=== PATIENT | female | born 1965 | race Caucasian/White ===

== ENCOUNTER 2024-09-06 18:31 | Emergency (ER) | payer MEDICAID, SELFPAY ==
[2024-09-06 18:32] VITALS: BMI 22.3
[2024-09-06 19:30] VITALS: BP 164/84; PULSE 100; RESP 18; TEMP 36.5; O2SAT 95
--- NOTE | 2024-09-06 19:33 | EKG_ITS ---
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
--- NOTE | 2024-09-06 19:33 | XR_ITS ---
Examination: PA lateral chest 2 views Technique: Upright PA lateral chest 2 views Exam date and time: September 06, 2024 1957 hrs. Comparison May 05, 2022 Indications: Onset chest pain today. Findings: Scarring versus pneumonia in the right middle lobe, clinical correlation advised Normal heart size No pulmonary edema Impression: Scarring versus pneumonia in the right middle lobe, clinical correlation advised
--- NOTE | 2024-09-06 19:34 | EDRME_ITS ---
Rapid Medical Screening Exam [facility] Arrival date/time: 09/06/24 18:31 59-year-old female past medical history of everyday smoker presents emergency department complaining of chest pain and allergic reaction to hair dye involving scalp and bilateral ears. Chief Complaint: Allergic Reaction Time Seen by Provider: 09/06/24 19:28 Vital signs: Vital Signs Temperature 97.7 F 09/06/24 19:30 Pulse Rate 100 09/06/24 19:30 Respiratory Rate 18 09/06/24 19:30 Blood Pressure 164/84 H 09/06/24 19:30 Pulse Oximetry (%) 95 09/06/24 19:30 Oxygen Delivery Method Room Air 09/06/24 19:30 Vital signs reviewed by provider: Yes
[2024-09-06] MEDS: FAMOTIDINE 20 MG TABLET 40 MG PO (19:41)
[2024-09-06] MEDS: DiphenhydrAMINE ELIX 25 MG/10 ML UDC 50 MG PO (19:41)
[2024-09-06] MEDS: DEXAMETHASONE SOD PHOS INJ 10 MG/ML VIAL IM (19:42)
[2024-09-06 19:54] LABS: Collection Type, Urine Clean Catch
[2024-09-06 20:02] LABS: Bacteria,Urine Rare; Bilirubin,Urine Negative (Negative); Blood,Urine Negative (Negative); Clarity,Urine Clear (Clear/Hazy); Color,Urine Lt-Yellow (Lt Yel-Yel); Culture Indicated,Urine Not Indicated; Glucose, Urine Negative (Negative); Ketones,Urine Negative (Negative); Leukocyte Esterase,Urine Positive (Negative); Nitrite,Urine Negative (Negative); Protein,Urine Trace (Neg - Trace); RBC,Urine 1 /hpf (0-3); Specific Gravity,Urine 1.027 (1.001-1.035); Squamous Epithelial Cell,Urine 3 /hpf (0-5); Urobilinogen,Urine Negative mg/dL (0.0-1.0); WBC,Urine 6 /hpf (0-5)
[2024-09-06 20:10] LABS: Amphetamine/Methamp Scrn,U Negative (Negative); Barbiturate Screen,Urine Negative (Negative); Benzodiazepines Screen,Urine Negative (Negative); Benzoylecgonine Screen, Ur Negative (Negative); Fentanyl Screen,Urine Negative (Negative); Opiate Screen,Urine Positive (Negative); THC Screen,Urine Positive (Negative)
[2024-09-06 20:21] LABS: Basophils # (Auto) 0.1 Thou/mm3 (0.0-0.2); Basophils % (Auto) 1 % (0-2.5); Eosinophils # (Auto) 0.6 Thou/mm3 (0.0-0.5); Eosinophils % (Auto) 10 % (0-10); Hematocrit 44.3 % (36.0-46.0); Hemoglobin 14.1 g/dL (12.0-16.0); Immature Granulocytes % (Auto) 0 % (0-0); Immature Granulocytes Auto 0.01 Thou/mm3 (0.00-0.00); Lymphocytes # (Auto) 2.8 Thou/mm3 (1.0-4.8); Lymphocytes % (Auto) 50 % (10-50); Mean Corpuscular HGB Conc 31.8 g/dl (31.0-37.0); Mean Corpuscular Hemoglobin 30.2 pg (25.0-35.0); Mean Corpuscular Volume 95 fL (80-100); Monocytes # (Auto) 0.5 Thou/mm3 (0.0-0.8); Monocytes % (Auto) 9 % (0-12); Neutrophils # (Auto) 1.7 Thou/mm3 (1.8-7.7); Neutrophils % (Auto) 30 % (37-80); Nucleated Red Blood Cell % 0 /100 WBC (0); Platelet Count 289 Thou/mm3 (140-440); RDW Standard Deviation 45.1 fL (36.4-46.3); Red Blood Count 4.67 Miln/mm3 (4.00-5.20); White Blood Count 5.6 Thou/mm3 (3.6-11.0)
[2024-09-06 20:37] LABS: Partial Thromboplastin Time 26.5 Seconds (22.0-36.0); Prothrombin Time 10.9 Seconds (9.0-12.2)
[2024-09-06 20:42] LABS: B-Type Natriuretic Peptide < 20 pg/mL (0-100)
[2024-09-06 20:43] LABS: Alanine Aminotransferase 23 U/L (10-49); Albumin, Serum 4.8 gm/dL (3.5-5.0); Albumin/Globulin Ratio 1.8 (1.2-2.2); Alkaline Phosphatase 73 U/L (46-116); Anion Gap 3 (7-16); Aspartate Amino Transferase 26 U/L (0-34); BUN/Creatinine Ratio 14 Ratio (12-20); Bilirubin,Total 0.2 mg/dL (0.3-1.2); Blood Urea Nitrogen 11 mg/dL (9-23); Calcium 9.9 mg/dL (8.3-10.6); Calcium (Corrected) 9.9 mg/dL (8.5-10.1); Carbon Dioxide 32.2 mMol/L (20.0-31.0); Chloride 104 mMol/L (98-107); Creatinine (Component) 0.8 mg/dL (0.6-1.3); Globulin 2.6 gm/dL (2.3-3.5); Glucose 83 mg/dL (74-106); Magnesium 2.1 mg/dL (1.6-2.6); Osmolality,Calculated 275 (275-295); Potassium 3.9 mMol/L (3.4-5.1); Sodium 139 mMol/L (136-145); Total Protein 7.4 gm/dL (5.7-8.2); Troponin I < 0.020 ng/mL (0.0-0.045); eGFR > 60 See Note
[2024-09-06 20:52] VITALS: BP 151/76; PULSE 93; RESP 20; TEMP 37; O2SAT 95
--- NOTE | 2024-09-06 20:59 | PD.EDADULT ---
ED General RME/HPI General Chief complaint: Allergic Reaction Stated complaint: POSS ALLERGIC REACTION TO HAIR DYE, BLISTERS ON EA Time Seen by Provider: 09/06/24 19:28 Arrival date/time: 09/06/24 18:31 CC: Itching scalp rash on scalp itching and oozing from the tops of her ears, intermittent chest pain HPI itching scalp and ears is ongoing for 3 days, chest pain for several weeks lasting 1 to 2 hours in different areas of the chest last episode was left anterior lasted 1 hour dull in nature 1-3 on a 10 scale that spontaneously resolved. Patient states all the scalp and ear complaints are related to putting dye in her hair the patient knows she cannot take ammonia or certain kind of diet secondary to a known allergic reaction and this diet a lot was supposed to be without those in spite of the fact the patient want of having itchy scalp with a rash underneath the hair and pussy tops of the ears 4 days after applying the hair dye. Patient states she has been smoking 2 packs a day for the last 40 years until last year when she cut down to 1 pack and she is continue to work on cutting down less than that. RME / HPI RME / HPI narrative: 09/06/24 18:31 59-year-old female past medical history of everyday smoker presents emergency department complaining of chest pain and allergic reaction to hair dye involving scalp and bilateral ears. Related Data Home Medications ?Medication ?Instructions ?Recorded ?Confirmed baclofen 5 mg tablet 5 mg PO BID 01/02/21 01/02/21 hydrocodone 10 mg-acetaminophen 1 tab PO Q4H PRN Pain 01/02/21 01/02/21 325 mg tablet pregabalin 75 mg capsule (Lyrica) 75 mg PO BID 01/02/21 01/02/21 Previous Rx's ?Medication ?Instructions ?Recorded ibuprofen 600 mg tablet 600 mg PO Q8H PRN pain #20 tabs 06/21/21 hydrocodone 5 mg-acetaminophen 325 1 tab PO BID PRN pain #10 tabs 06/22/21 mg tablet fluticasone propionate 50 2 spray intranasal QDAY #16 grams 10/19/21 mcg/actuation nasal spray,suspension (Flonase Allergy Relief) albuterol sulfate 90 mcg/actuation 2 puff inhalation QID #8.5 grams 05/06/22 aerosol inhaler budesonide-formoterol HFA 80 2 puff inhalation BID #10.2 grams 05/06/22 mcg-4.5 mcg/actuation aerosol inhaler (Symbicort) cetirizine 10 mg tablet (Zyrtec) 10 mg PO QDAY PRN allergy symptoms 03/31/24 #20 tabs diphenhydramine HCl 25 mg capsule 25 mg PO TID PRN allergy symptoms 03/31/24 (Allergy (diphenhydramine)) #20 caps hydrocortisone 2.5 % topical cream 1 applic topical BID PRN itching 04/02/24 #30 grams prednisone 20 mg tablet See Taper PO BID 3 days #6 tabs 09/06/24 Allergies Allergy/AdvReac Type Severity Reaction Status Date / Time paroxetine Allergy Mild Rash Verified 09/06/24 18:34 sertraline Allergy Mild Rash Verified 09/06/24 18:34 Review of Systems Review of Systems Narrative Review of Systems: GEN: No fever, no chills, no weight loss EYES: No discharge, no visual changes, no pain HEENT: No ear pain, no congestion, no sore throat PULM: No shortness of breath, no cough, no congestion CV: No chest pain, no dyspnea on exertion, no palpitations GI: No nausea, no vomiting, no diarrhea, no pain, no constipation : No frequency, no urgency, no dysuria MUSC/SKEL: No joint pain, no back pain SKIN: + rash PSYCH: No hallucinations, no depression HEME/LYMPH: No easy bleeding or bruising tendencies NEURO: No weakness, no headache Past Medical History Past Medical History NEUROLOGIC: Negative Neurological Disorders CARDIAC: Negative Cardiac Disorders or Congestive Heart Failure RESPIRATORY: Negative Chronic Obstructive Pulmonary Disease (COPD) or Asthma GENITOURINARY: Negative Renal Disease ENDOCRINE: Negative Diabetes Mellitus Type 1 or Diabetes Mellitus Type 2 HEMATOLOGIC: Negative Sickle Cell Disease PSYCHO/SOCIAL: Positive Bipolar Disorder Social History SMOKING STATUS: Current every day smoker ED Exam Narrative Physical exam: [General: In mild discomfort not in any acute distress Head normocephalic HEENT: Within acceptable limits Neck is supple nontender Chest equal chest rise nontender to palpation Respiratory: Clear to auscultation no wheezes crackles or rubs CV: Rate rhythm is regular no murmurs rubs or clicks Abdomen is soft nontender no masses positive bowel sounds all 4 quadrants Back: No CVA tenderness no spinous process tenderness from cervical spine thoracic and lumbar spine Skin: Scalp erythema, no open lesions indurations or ulcerations, upper pinna of the ear is edematous erythematous with a few sites of oozing a small amount of serous secondary to fluid. No active bleeding. Otherwise skin is intact no petechiae rash induration ulceration or crepitus Extremities: Moving all extremity against resistance cap refill less than 2 seconds neurosensory intact Neuro: Awake alert oriented x3 Glascow coma 15 no focal deficits] Course Quality Measures none Orders Category Date Time Status EKG (ED ONLY) *Do not use* NOW Care 09/06/24 19:33 Completed EKG (ED Only) Stat Exams 09/06/24 19:33 Draft XR chest 2V Stat Exams 09/06/24 19:33 Taken B-Type Natriuretic Peptide Stat Lab 09/06/24 19:48 Completed CBC Stat Lab 09/06/24 19:48 Completed Comprehensive Metabolic Panel Stat Lab 09/06/24 19:48 Completed Drug Screen,Urine Stat Lab 09/06/24 19:46 Completed Magnesium Stat Lab 09/06/24 19:48 Completed Partial Thromboplastin Time Stat Lab 09/06/24 19:48 Completed Prothrombin Time with INR Stat Lab 09/06/24 19:48 Completed Troponin I Stat Lab 09/06/24 19:48 Completed Urinalysis, C/S if Indicated Stat Lab 09/06/24 19:46 Completed Dexamethasone Inj [Decadron Inj] Med 09/06/24 19:33 Discontinued 10 mg IM X1 ONE DiphenhydrAMINE [Benadryl] Med 09/06/24 19:33 Discontinued 50 mg PO X1 ONE Famotidine [Pepcid] Med 09/06/24 19:33 Discontinued 40 mg PO X1 ONE Vital Signs Vital signs: Vital Signs Temperature 97.7 F 09/06/24 19:30 Pulse Rate 100 09/06/24 19:30 Respiratory Rate 18 09/06/24 19:30 Blood Pressure 164/84 H 09/06/24 19:30 Pulse Oximetry (%) 95 09/06/24 19:30 Oxygen Delivery Method Room Air 09/06/24 19:30 [facility] Patient data External records reviewed:: [facility] previous records Clinical information provided by:: patient Social determinants that could affect healthcare access:: none Patient has the following chronic illnesses:: Chronic pain syndrome How is presenting disease/condition affected by chronic disease/condition?: uneffected by Evaluation data The following diagnostics were reviewed and interpreted by me:: lab results and radiology exam(s) Lab and/or radiology exams considered but not ordered:: CBC shows no acute leukocytosis anemia thrombocytopenia INR is within acceptable limits CMP shows no acute electrolyte imbalances renal impairment transaminitis or T. bili elevation. Troponin is negative EKG performed at 1943 shows a ventricular rate of 94 HI interval 164 QRS of 109 QTc of 386. Incomplete right bundle branch block. Interpretation Summary: Skin irritation to the upper ears and the scalp secondary to exposure to hair dye, chest pain is most likely chest spasms by the description, there are no acute findings such as ACS or MRI patient will be discharged home on a small amount of steroids and told to avoid all hair dyes. Medications Medications considered but not ordered:: None Medication administrations:: Medication Administration History Discontinued Medications Dexamethasone Sodium Phosphate (Dexamethasone Sod Phos Inj 10 Mg/Ml Vial) 10 mg IM X1 ONE Stop: 09/06/24 19:34 Last Admin: 09/06/24 19:42 Dose: 10 mg Documented By: OA Diphenhydramine HCl (Diphenhydramine Elix 25 Mg/10 Ml Udc) 50 mg PO X1 ONE Stop: 09/06/24 19:34 Last Admin: 09/06/24 19:41 Dose: 50 mg Documented By: OA Famotidine (Famotidine 20 Mg Tablet) 40 mg PO X1 ONE Stop: 09/06/24 19:34 Last Admin: 09/06/24 19:41 Dose: 40 mg Documented By: OA None Consultations Consultation(s) initiated? (list below): No Diagnosis Differential Diagnosis ED Complaint MDM: ACS OR pneumonia allergic reaction urticaria Most likely diagnosis given after review of the tests above:: Skin irritation and chest pain Admission Indicated Admission indicated?: not indicated Explain why admission is indicated or not indicated:: Stable for outpatient follow-up Admission Request Was there a request for admission?: No Disposition Plan Disposition Plan: Discharge Discharge Attestation Discharge Attestation: The patient and all family members were given an opportunity to ask questions and understood the discharge instructions. Discharge instructions specifically effects, indications for sooner follow up or return to the emergency department, and the expected course of current diagnosis. Patient condition: Stable Medical Decision Making Differential Diagnosis Differential Diagnosis: ACS OR pneumonia allergic reaction urticaria Lab Data 11/19/24 19:48 09/06/24 19:48 Labs: Lab Results 09/06/24 09/06/24 Range/Units 19:46 19:48 WBC 5.6 (3.6-11.0) Thou/mm3 RBC 4.67 (4.00-5.20) Miln/mm3 Hgb 14.1 (12.0-16.0) g/dL Hct 44.3 (36.0-46.0) % MCV 95 (80-100) fL MCH 30.2 (25.0-35.0) pg MCHC 31.8 (31.0-37.0) g/dl RDW Std Deviation 45.1 (36.4-46.3) fL Plt Count 289 (140-440) Thou/mm3 Neut % (Auto) 30 L (37-80) % Lymph % (Auto) 50 (10-50) % Garrett % (Auto) 9 (0-12) % Eos % (Auto) 10 (0-10) % Baso % (Auto) 1 (0-2.5) % Neut # (Auto) 1.7 L (1.8-7.7) Thou/mm3 Lymph # (Auto) 2.8 (1.0-4.8) Thou/mm3 Garrett # (Auto) 0.5 (0.0-0.8) Thou/mm3 Eos # (Auto) 0.6 H (0.0-0.5) Thou/mm3 Baso # (Auto) 0.1 (0.0-0.2) Thou/mm3 Immature Gran # (Auto) 0.01 H (0.00-0.00) Thou/mm3 Absolute Nucleated RBC 0.00 (0.00-0.00) Thou/mm3 Immature Gran % 0 (0-0) % Nucleated RBC % 0 (0) /100 WBC PT 10.9 (9.0-12.2) Seconds INR 1.0 (0.9-1.3) APTT 26.5 (22.0-36.0) Seconds Sodium 139 (136-145) mMol/L Potassium 3.9 (3.4-5.1) mMol/L Chloride 104 (98-107) mMol/L Carbon Dioxide 32.2 H (20.0-31.0) mMol/L Anion Gap 3 L (7-16) BUN 11 (9-23) mg/dL Creatinine 0.8 (0.6-1.3) mg/dL Estim Creat Clear Calc 67.0 (>60) mL/min eGFR > 60 (60 - ) See Note BUN/Creatinine Ratio 14 (12-20) Ratio Glucose 83 (74-106) mg/dL Calculated Osmolality 275 (275-295) Calcium 9.9 (8.3-10.6) mg/dL Corrected Calcium 9.9 (8.5-10.1) mg/dL Magnesium 2.1 (1.6-2.6) mg/dL Total Bilirubin 0.2 L (0.3-1.2) mg/dL AST 26 (0-34) U/L ALT 23 (10-49) U/L Alkaline Phosphatase 73 (46-116) U/L Troponin I < 0.020 (0.0-0.045) ng/mL B-Natriuretic Peptide < 20 (0-100) pg/mL Total Protein 7.4 (5.7-8.2) gm/dL Albumin 4.8 (3.5-5.0) gm/dL Globulin 2.6 (2.3-3.5) gm/dL Albumin/Globulin Ratio 1.8 (1.2-2.2) Ur Collection Type Clean Catch Urine Color Lt-Yellow (Lt Yel-Yel) Urine Clarity Clear (Clear/Hazy) Urine pH 6.0 (5.0-7.0) Ur Specific [place] 1.027 (1.001-1.035) Urine Protein Trace (Neg - Trace) Urine Glucose (UA) Negative (Negative) Urine Ketones Negative (Negative) Urine Blood Negative (Negative) Urine Nitrite Negative (Negative) Urine Bilirubin Negative (Negative) Urine Urobilinogen (Auto) Negative (0.0-1.0) mg/dL Ur Leukocyte Esterase Positive (Negative) Urine RBC 1 (0-3) /hpf Urine WBC 6 H (0-5) /hpf Ur Squamous Epith Cells 3 (0-5) /hpf Urine Bacteria Rare (None) Ur Culture Indicated? Not Indicated Urine Opiates Screen Positive A (Negative) Urine Fentanyl Screen Negative (Negative) Ur Barbiturates Screen Negative (Negative) U Amphetamin/Meth Scrn Negative (Negative) U Benzodiazepines Scrn Negative (Negative) U Cocaine Metab Screen Negative (Negative) U Marijuana (THC) Screen Positive A (Negative) Discharge Plan Plan Patient Disposition: HOME (Self Care) Patient condition on transfer: Stable Prescriptions/Referrals Prescriptions/Med Rec: New prednisone 20 mg tablet See Taper PO BID 3 Days Qty: 6 0RF Taper: Prednisone Taper 20 mg DAILY for 2 Days and 0 Hour 10 mg DAILY for 2 Days and 0 Hour 5 mg DAILY for 7 Days and 0 Hour No Action ibuprofen 600 mg tablet 600 mg PO Q8H PRN (Reason: pain) Qty: 20 0RF hydrocodone-acetaminophen 5-325 mg tablet 1 tab PO BID MDD 10 PRN (Reason: pain) Qty: 10 0RF hydrocodone-acetaminophen [Shorter] 10-325 mg Tablet 1 tab PO Q4H PRN (Reason: Pain) pregabalin [Lyrica] 75 mg Capsule 75 mg PO BID baclofen 5 mg Tablet 5 mg PO BID fluticasone propionate [Flonase Allergy Relief] 50 mcg/actuation spray,suspension 2 spray intranasal QDAY Qty: 16 0RF Rx Instructions: administer into each nostril albuterol sulfate 90 mcg/actuation HFA aerosol inhaler 2 puff inhalation QID Qty: 8.5 0RF budesonide-formoterol [Symbicort] 80-4.5 mcg/actuation HFA aerosol inhaler 2 puff inhalation BID Qty: 10.2 0RF diphenhydramine HCl [Allergy (diphenhydramine)] 25 mg capsule 25 mg PO TID PRN (Reason: allergy symptoms) Qty: 20 0RF cetirizine [Zyrtec] 10 mg tablet 10 mg PO QDAY PRN (Reason: allergy symptoms) Qty: 20 0RF hydrocortisone 2.5 % cream 1 applic topical BID PRN (Reason: itching) Qty: 30 0RF Referrals: Vaibhav Coe[facility] [Primary Care Provider] - In 1 week Problem List Clinical Impression: Skin irritation Patient/Caregiver Discharge Instructions Additional Instructions: Consider outpatient referral to cardiology for outpatient workup. Take the medications as prescribed for the reaction to the hair dye if there is a worsening of symptoms in spite of the medications return the emergency room immediately for further evaluation. If you have persistent or unrelenting chest pain also return the emergency room for reevaluation. Please work closely with your primary care provider during smoking cessation. As you stated many of your family members have cardiac issues and you may want to have this closely monitored while you stop smoking. Print Language: Czech Stand Alone Forms: [employer]ell Award Info., Patient Portal Info Letter, Work/School Release PA/OPHTHALMIC PHOTOGRAPHER Supervising Physician PA/OPHTHALMIC PHOTOGRAPHER Supervising Physician: Elieser Reid ENP
== END 2024-09-06 21:38 | disposition home or self-care (01) ==
PROVIDERS: Emergency Provider Emergency Medicine; PCP Family Medicine
DX: T65.6X1A Toxic effect of paints and dyes, not elsewhere classified, accidental (unintentional), initial encounter (principal); L23.4 Allergic contact dermatitis due to dyes; I45.10 Unspecified right bundle-branch block
CPT/HCPCS: 36415; 71046; 80053; 80307; 81001; 83735; 83880; 84484; 85025; 85610; 85730; 93005; 96372; 99283; J1100; A9270

== ENCOUNTER 2024-09-13 20:59 | Emergency (ER) | payer MEDICAID, SELFPAY ==
[2024-09-13 21:00] VITALS: BMI 23.1
[2024-09-13 21:24] VITALS: BP 128/84; PULSE 98; RESP 18; TEMP 36.6; O2SAT 95
--- NOTE | 2024-09-13 21:52 | PD.EDALLER ---
ED Allergic Reaction RME/HPI General Chief complaint: Skin/Abscess/Foreign Body Stated complaint: BREAKING OUT IN RASH FROM HAIR DYE Time Seen by Provider: 09/13/24 21:33 Arrival date/time: 09/13/24 20:59 59F with history of psych presents to ED with 1 week of generalized itchy rash from a new hair dye. Patient was here 1 week ago during initial presentation and steroids/antihistamines helped, but then rash came back after meds were done. Limitations: no limitations Related Data Home Medications ?Medication ?Instructions ?Recorded ?Confirmed baclofen 5 mg tablet 5 mg PO BID 01/02/21 01/02/21 hydrocodone 10 mg-acetaminophen 1 tab PO Q4H PRN Pain 01/02/21 01/02/21 325 mg tablet pregabalin 75 mg capsule (Lyrica) 75 mg PO BID 01/02/21 01/02/21 Previous Rx's ?Medication ?Instructions ?Recorded ibuprofen 600 mg tablet 600 mg PO Q8H PRN pain #20 tabs 06/21/21 hydrocodone 5 mg-acetaminophen 325 1 tab PO BID PRN pain #10 tabs 06/22/21 mg tablet fluticasone propionate 50 2 spray intranasal QDAY #16 grams 10/19/21 mcg/actuation nasal spray,suspension (Flonase Allergy Relief) albuterol sulfate 90 mcg/actuation 2 puff inhalation QID #8.5 grams 05/06/22 aerosol inhaler budesonide-formoterol HFA 80 2 puff inhalation BID #10.2 grams 05/06/22 mcg-4.5 mcg/actuation aerosol inhaler (Symbicort) cetirizine 10 mg tablet (Zyrtec) 10 mg PO QDAY PRN allergy symptoms 03/31/24 #20 tabs diphenhydramine HCl 25 mg capsule 25 mg PO TID PRN allergy symptoms 03/31/24 (Allergy (diphenhydramine)) #20 caps hydrocortisone 2.5 % topical cream 1 applic topical BID PRN itching 04/02/24 #30 grams hydrocortisone 2.5 % topical cream 1 applic topical BID PRN itching 09/14/24 #30 grams prednisone 20 mg tablet 20 mg PO BID 7 days #14 tabs 09/14/24 Allergies Allergy/AdvReac Type Severity Reaction Status Date / Time paroxetine Allergy Mild Rash Verified 09/06/24 18:34 sertraline Allergy Mild Rash Verified 09/06/24 18:34 Review of Systems Review of Systems Systems Reviewed: All systems reviewed, normal except as documented Constitutional Constitutional: Reports system reviewed and no additional complaints, except as documented, Denies fever(s) and Denies headache(s) ENT Ears, Nose, Mouth, and Throat: Denies disequilibrium and Denies headache(s) Cardiovascular Cardiovascular: Reports system reviewed and no additional complaints, except as documented, Denies chest pain and Denies dyspnea Respiratory Respiratory: Reports system reviewed and no additional complaints, except as documented, Denies cough and Denies dyspnea Gastrointestinal Gastrointestinal: Reports system reviewed and no additional complaints, except as documented, Denies abdominal pain, Denies nausea and Denies vomiting Integumentary/Breasts Skin/Breast: Reports as per HPI, Reports pruritus and Reports rash Neurologic Neurologic: Reports system reviewed and no additional complaints, except as documented, Denies confusion, Denies disequilibrium and Denies headache(s) Psychiatric Psychiatric: Denies confusion Past Medical History Past Medical History NEUROLOGIC: Negative Neurological Disorders CARDIAC: Negative Cardiac Disorders or Congestive Heart Failure RESPIRATORY: Negative Chronic Obstructive Pulmonary Disease (COPD) or Asthma GENITOURINARY: Negative Renal Disease ENDOCRINE: Negative Diabetes Mellitus Type 1 or Diabetes Mellitus Type 2 HEMATOLOGIC: Negative Sickle Cell Disease PSYCHO/SOCIAL: Positive Bipolar Disorder Social History SMOKING STATUS: Current every day smoker ED Exam General Limitations: Present no limitations General appearance: Present alert and in no apparent distress Head Head exam: Present atraumatic Eye Eye exam: Present normal appearance, PERRL and EOMI ENT ENT exam: Present normal exam, normal oropharynx and mucous membranes moist Neck Neck exam: Present normal inspection, full ROM and trachea midline Chest Chest inspection: Present normal inspection and symmetric chest wall rise Respiratory Respiratory exam: Present normal lung sounds bilaterally Cardiovascular Cardiovascular exam: Present regular rate, normal rhythm and normal heart sounds Abdominal Exam Abdominal exam: Present soft and normal bowel sounds Extremities Exam Extremities exam: Present normal inspection and full ROM Back Exam Back exam: Present normal inspection and full ROM Neurological Exam Neurological exam: Present alert, oriented X3 and CN II-XII intact Psychiatric Psychiatric exam: Present normal affect and normal mood Skin Skin exam: Present warm, dry, intact, normal color and rash Course Quality Measures none Orders Category Date Time Status Dexamethasone Inj [Decadron Inj] Med 09/13/24 21:34 Discontinued 10 mg PO X1 ONE DiphenhydrAMINE [Benadryl] Med 09/14/24 00:18 Discontinued 25 mg PO X1 ONE Famotidine [Pepcid] Med 09/13/24 21:34 Discontinued 40 mg PO X1 ONE Vital Signs Vital signs: Vital Signs Temperature 98 F 09/13/24 21:24 Pulse Rate 98 09/13/24 21:24 Respiratory Rate 18 09/13/24 21:24 Blood Pressure 128/84 09/13/24 21:24 Pulse Oximetry (%) 95 09/13/24 21:24 Oxygen Delivery Method Room Air 09/13/24 21:24 O2 at 95% on RA and WNLs Allergic Reaction MDM Narrative MDM Narrative:: 59F with history of psych presents to ED with 1 week of generalized itchy rash from a new hair dye. Patient was here 1 week ago during initial presentation and steroids/antihistamines helped, but then rash came back after meds were done. Physical exam reveals generalized somewhat urticarial rash. Clear ENT and lungs. Paitent is afebrile, calm, and alert. Steroids mildly improved symptoms. Will also given steroid cream as RX as this is likely contact dermatitis. Patient data External records reviewed:: [facility] previous records Clinical information provided by:: patient Social determinants that could affect healthcare access:: mental health Patient has the following chronic illnesses:: psych How is presenting disease/condition affected by chronic disease/condition?: uneffected by Evaluation data The following diagnostics were reviewed and interpreted by me:: other (specify) (none) Lab and/or radiology exams considered but not ordered:: not ordered Interpretation Summary: n/a Medications / Prescriptions Medications or Prescriptions considered but not ordered:: ordered Medication administrations:: Medication Administration History Discontinued Medications Dexamethasone Sodium Phosphate (Dexamethasone Sod Phos Inj 10 Mg/Ml Vial) 10 mg PO X1 ONE Stop: 09/13/24 21:35 Last Admin: 09/13/24 21:53 Dose: 10 mg Documented By: HEATHER Diphenhydramine HCl (Diphenhydramine 25 Mg Capsule) 25 mg PO X1 ONE Stop: 09/14/24 00:19 Famotidine (Famotidine 20 Mg Tablet) 40 mg PO X1 ONE Stop: 09/13/24 21:35 Last Admin: 09/13/24 21:53 Dose: 40 mg Documented By: HEATHER above Consultations Consultation(s) initiated? (list below): No Diagnosis Differential Diagnosis allergic reaction: anaphylaxis, allergic reaction, angioedema, contact dermatitis, adverse reaction to drug, viral enanthem and urticaria Most likely diagnosis given after review of the tests above:: contact dermatitis Admission Indicated Admission indicated?: not indicated Admission Request Was there a request for admission?: No Disposition Plan Disposition Plan: Discharge Discharge Attestation Discharge Attestation: The patient and all family members were given an opportunity to ask questions and understood the discharge instructions. Discharge instructions specifically effects, indications for sooner follow up or return to the emergency department, and the expected course of current diagnosis. Patient condition: Stable Discharge Plan Plan Patient Disposition: HOME (Self Care) Disposition Comment: Stable Prescriptions/Referrals Prescriptions/Med Rec: New prednisone 20 mg tablet 20 mg PO BID 7 Days Qty: 14 0RF hydrocortisone 2.5 % cream 1 applic topical BID PRN (Reason: itching) Qty: 30 0RF No Action ibuprofen 600 mg tablet 600 mg PO Q8H PRN (Reason: pain) Qty: 20 0RF hydrocodone-acetaminophen 5-325 mg tablet 1 tab PO BID MDD 10 PRN (Reason: pain) Qty: 10 0RF hydrocodone-acetaminophen [[place]] 10-325 mg Tablet 1 tab PO Q4H PRN (Reason: Pain) pregabalin [Lyrica] 75 mg Capsule 75 mg PO BID baclofen 5 mg Tablet 5 mg PO BID fluticasone propionate [Flonase Allergy Relief] 50 mcg/actuation spray,suspension 2 spray intranasal QDAY Qty: 16 0RF Rx Instructions: administer into each nostril albuterol sulfate 90 mcg/actuation HFA aerosol inhaler 2 puff inhalation QID Qty: 8.5 0RF budesonide-formoterol [Symbicort] 80-4.5 mcg/actuation HFA aerosol inhaler 2 puff inhalation BID Qty: 10.2 0RF diphenhydramine HCl [Allergy (diphenhydramine)] 25 mg capsule 25 mg PO TID PRN (Reason: allergy symptoms) Qty: 20 0RF cetirizine [Zyrtec] 10 mg tablet 10 mg PO QDAY PRN (Reason: allergy symptoms) Qty: 20 0RF hydrocortisone 2.5 % cream 1 applic topical BID PRN (Reason: itching) Qty: 30 0RF Referrals: Joy Quinones FNP [Primary Care Provider] - In 1 week Problem List Clinical Impression: Contact dermatitis Patient/Caregiver Discharge Instructions Education Materials: ED Contact Dermatitis Additional Instructions: Please follow-up with PCP within 24-48 hours and return immediately if symptoms worsen. Take OTC antihistamine as needed until symptoms resolve. Finish entire steroid course. Avoid scratching. Print Language: Korean Stand Alone Forms: Patient Portal Info Letter KONSTANTIN/CARMELINA Supervising Physician MIKKI Supervising Physician: Dr. Gutierres
[2024-09-13] MEDS: DEXAMETHASONE SOD PHOS INJ 10 MG/ML VIAL PO (21:53)
[2024-09-13] MEDS: FAMOTIDINE 20 MG TABLET 40 MG PO (21:53)
[2024-09-13 23:52] VITALS: BP 116/83; PULSE 96; RESP 18; TEMP 36.6; O2SAT 95
[2024-09-14] MEDS: DiphenhydrAMINE 25 MG CAPSULE PO (00:25)
== END 2024-09-14 00:53 | disposition home or self-care (01) ==
PROVIDERS: Emergency Provider Emergency Medicine; PCP Nurse Practitioner
DX: L25.9 Unspecified contact dermatitis, unspecified cause (principal)
CPT/HCPCS: 99282; J1100; A9270

== ENCOUNTER → 2024-11-22 | Outpatient (CLI) | payer MEDICAID, SELFPAY ==
--- NOTE | 2024-11-22 | XR_ITS ---
Examination: Humerus 2 views right Technique: Humerus, AP lateral 2 views Date and time of exam: November 22, 2024 1505 hours INDICATIONS: Patient fell today with injury to the arm, right arm pain FINDINGS: No shoulder fracture or dislocation Shaft of the humerus intact IMPRESSION: No acute fracture Mild calcific tendinitis
--- NOTE | 2024-11-22 16:56 | XR_ITS ---
Examination: Shoulder,right, 3 views Technique: Shoulder AP internal rotation, AP external rotation, Y view shoulder, 3 views Exam date and time :November 22, 2024 1658 hours INDICATIONS: Patient fell 2 weeks ago with injury to the shoulder, shoulder pain. FINDINGS: No shoulder fracture or dislocation Moderate osteoarthritis glenohumeral joint Mild calcific tendinitis IMPRESSION: No shoulder fracture or dislocation
== END | disposition home or self-care (01) ==
PROVIDERS: PCP Family Medicine; Referring Provider Family Medicine; Visit Provider Family Medicine
DX: S49.91XA Unspecified injury of right shoulder and upper arm, initial encounter (principal); W19.XXXA Unspecified fall, initial encounter; M65.28 Calcific tendinitis, other site
CPT/HCPCS: 73030; 73060

== ENCOUNTER 2025-01-04 22:02 | Emergency (ER) | payer MEDICAID, SELFPAY ==
[2025-01-04 22:03] VITALS: BMI 23.1
[2025-01-04 23:02] VITALS: BP 160/79; PULSE 97; RESP 18; TEMP 36.6; O2SAT 95
[2025-01-04] MEDS: FAMOTIDINE 20 MG TABLET PO (23:20)
[2025-01-04] MEDS: DEXAMETHASONE SOD PHOS INJ 10 MG/ML VIAL PO (23:20)
--- NOTE | 2025-01-05 00:33 | PD.EDRME ---
Rapid Medical Screening Exam [facility] Arrival date/time: 01/04/25 22:02 59F with history of drug use presents to ED with 1 day of generalized itchy rash after using a new cream. Patient denies new meds, foods, SOB, and throat swelling. Patient took some Benadryl w/o relief. Chief Complaint: Skin/Abscess/Foreign Body Time Seen by Provider: 01/04/25 23:08 Vital signs: Vital Signs Temperature 97.9 F 01/04/25 23:02 Pulse Rate 97 01/04/25 23:02 Respiratory Rate 18 01/04/25 23:02 Blood Pressure 160/79 H 01/04/25 23:02 Pulse Oximetry (%) 95 01/04/25 23:02 Oxygen Delivery Method Room Air 01/04/25 23:02
--- NOTE | 2025-01-05 00:45 | PC.NURSE ---
CALLED PT FOR PROVIDER REASSESSMENT AND NO ANSWER.
--- NOTE | 2025-01-05 01:00 | PC.NURSE ---
CALLED PT FOR PROVIDER REASSESSMENT AND NO ANSWER.
--- NOTE | 2025-01-05 01:17 | PC.NURSE ---
CALLED PT FOR PROVIDER REASSESSMENT AND NO ANSWER.
== END 2025-01-05 01:23 | disposition left against medical advice (07) ==
LOC: SERX 23:39
PROVIDERS: Emergency Provider Emergency Medicine; PCP Family Medicine
DX: R21 Rash and other nonspecific skin eruption (principal); Z53.29 Procedure and treatment not carried out because of patient's decision for other reasons
CPT/HCPCS: 99281; J1100; A9270

== ENCOUNTER 2025-01-27 15:38 | Emergency (ER) | payer MEDICAID, SELFPAY ==
[2025-01-27 15:49] VITALS: BP 133/76; PULSE 100; RESP 19; TEMP 36.7; O2SAT 96; BMI 23.1
--- NOTE | 2025-01-27 15:57 | XR_ITS ---
Examination: CT right hip, without contrast. 2-D sagittal reconstructions. 2-D coronal reconstructions. 3-D reconstructions. Date and time of exam:January 27, 2025 1615 hrs. Indications: Patient fell today with injury to the right hip, right hip pain CTDI: vol (mGy):5.07 DLP: (mGycm):166 Technique: Multiple 1.25 mm axial sections of the pelvis right hip without intravenous contrast have been obtained. 2-D sagittal and coronal reconstructions have been obtained. 3-D reconstructions have been obtained. Low dose protocols were performed. One or more of the following dose reduction techniques were used; automated exposure control, adjustment of the mA and/or KV according to patient size, use of iterative reconstruction technique. Findings: Sacral segments and iliac bones acetabular regions anterior rami intact Advanced right hip osteoarthritis No right or left hip fracture or dislocation Impression: Advanced right hip osteoarthritis No acute hip or pelvic fracture
--- NOTE | 2025-01-27 16:16 | PD.EDRME ---
Rapid Medical Screening Exam [facility] Arrival date/time: 01/27/25 15:38 59-year-old female presents to the Emergency Department today for complaint of right hip pain Chief Complaint: Fall Time Seen by Provider: 01/27/25 15:58 Vital signs: Vital Signs Temperature 98.0 F 01/27/25 15:49 Pulse Rate 100 01/27/25 15:49 Respiratory Rate 19 01/27/25 15:49 Blood Pressure 133/76 H 01/27/25 15:49 Pulse Oximetry (%) 96 01/27/25 15:49 Oxygen Delivery Method Room Air 01/27/25 15:49
[2025-01-27] MEDS: KETOROLAC INJ 30 MG/ML VIAL IM (16:43)
--- NOTE | 2025-01-27 17:09 | PD.EDFALL ---
ED Fall Injury RME/HPI General Chief Complaint: Fall Stated Complaint: Right leg pain after fall Time Seen by Provider: 01/27/25 15:58 Arrival date/time: 01/27/25 15:38 59-year-old female presents to the Emergency Department today for complaint of right hip pain and right inguinal pain after fall Limitations: no limitations RME / HPI RME / HPI Narrative: 01/27/25 15:38 59-year-old female presents to the Emergency Department today for complaint of right hip pain Related Data Home Medications ?Medication ?Instructions ?Recorded ?Confirmed baclofen 5 mg tablet 5 mg PO BID 01/02/21 01/02/21 hydrocodone 10 mg-acetaminophen 1 tab PO Q4H PRN Pain 01/02/21 01/02/21 325 mg tablet pregabalin 75 mg capsule (Lyrica) 75 mg PO BID 01/02/21 01/02/21 Previous Rx's ?Medication ?Instructions ?Recorded ibuprofen 600 mg tablet 600 mg PO Q8H PRN pain #20 tabs 06/21/21 hydrocodone 5 mg-acetaminophen 325 1 tab PO BID PRN pain #10 tabs 06/22/21 mg tablet fluticasone propionate 50 2 spray intranasal QDAY #16 grams 10/19/21 mcg/actuation nasal spray,suspension (Flonase Allergy Relief) albuterol sulfate 90 mcg/actuation 2 puff inhalation QID #8.5 grams 05/06/22 aerosol inhaler budesonide-formoterol HFA 80 2 puff inhalation BID #10.2 grams 05/06/22 mcg-4.5 mcg/actuation aerosol inhaler (Symbicort) cetirizine 10 mg tablet (Zyrtec) 10 mg PO QDAY PRN allergy symptoms 03/31/24 #20 tabs diphenhydramine HCl 25 mg capsule 25 mg PO TID PRN allergy symptoms 03/31/24 (Allergy (diphenhydramine)) #20 caps hydrocortisone 2.5 % topical cream 1 applic topical BID PRN itching 04/02/24 #30 grams hydrocortisone 2.5 % topical cream 1 applic topical BID PRN itching 09/14/24 #30 grams hydrocodone 5 mg-acetaminophen 325 1 tab PO BID PRN pain #6 tabs 01/27/25 mg tablet Allergies Allergy/AdvReac Type Severity Reaction Status Date / Time paroxetine Allergy Mild Rash Verified 01/27/25 15:41 sertraline Allergy Mild Rash Verified 01/27/25 15:41 Review of Systems Review of Systems Systems Reviewed: All systems reviewed, normal except as documented Constitutional Constitutional: Reports system reviewed and no additional complaints, except as documented, Denies fever(s) and Denies headache(s) Eyes Eyes: Reports system reviewed and no additional complaints, except as documented and Denies blurry vision ENT Ears, Nose, Mouth, and Throat: Reports system reviewed and no additional complaints, except as documented, Denies headache(s), Denies nasal congestion and Denies nasal discharge Cardiovascular Cardiovascular: Reports system reviewed and no additional complaints, except as documented, Denies chest pain and Denies dyspnea Respiratory Respiratory: Reports system reviewed and no additional complaints, except as documented, Denies chest congestion, Denies cough and Denies dyspnea Gastrointestinal Gastrointestinal: Reports system reviewed and no additional complaints, except as documented and Denies abdominal pain Musculoskeletal Musculoskeletal: Reports system reviewed and no additional complaints, except as documented and Denies deformity Integumentary/Breasts Skin/Breast: Reports system reviewed and no additional complaints, except as documented and Denies rash Neurologic Neurologic: Reports system reviewed and no additional complaints, except as documented, Reports as per HPI and Denies headache(s) Past Medical History Past Medical History NEUROLOGIC: Negative Neurological Disorders CARDIAC: Negative Cardiac Disorders or Congestive Heart Failure RESPIRATORY: Negative Chronic Obstructive Pulmonary Disease (COPD) or Asthma GENITOURINARY: Negative Renal Disease ENDOCRINE: Negative Diabetes Mellitus Type 1 or Diabetes Mellitus Type 2 HEMATOLOGIC: Negative Sickle Cell Disease PSYCHO/SOCIAL: Positive Bipolar Disorder Social History SMOKING STATUS: Heavy (> 1 pack/day) ED Exam General Limitations: Present no limitations General appearance: Present alert and in no apparent distress Head Head exam: Present atraumatic, normocephalic and normal inspection Eye Eye exam: Present normal appearance, PERRL and EOMI; Absent conjunctival injection ENT ENT exam: Present normal exam, normal oropharynx and mucous membranes moist Neck Neck exam: Present normal inspection, full ROM and trachea midline Chest Chest inspection: Present normal inspection and symmetric chest wall rise Respiratory Respiratory exam: Present normal lung sounds bilaterally Cardiovascular Cardiovascular exam: Present regular rate, normal rhythm and normal heart sounds Abdominal Exam Abdominal exam: Present soft and normal bowel sounds Extremities Exam Extremities exam: Present full ROM, tenderness (Right hip pain), normal capillary refill and joint swelling; Absent pedal edema or calf tenderness Back Exam Back exam: Present normal inspection and full ROM Neurological Exam Neurological exam: Present alert, oriented X3 and CN II-XII intact Psychiatric Psychiatric exam: Present normal affect and normal mood Skin Skin exam: Present warm, dry, intact and normal color Course Quality Measures none Orders Category Date Time Status CT hip RT wo con Stat Exams 01/27/25 15:57 Completed Ketorolac Inj [Toradol Inj] Med 01/27/25 15:57 Discontinued 30 mg IM X1 ONE Vital Signs Vital signs: Vital Signs Temperature 98.0 F 01/27/25 15:49 Pulse Rate 100 01/27/25 15:49 Respiratory Rate 19 01/27/25 15:49 Blood Pressure 133/76 H 01/27/25 15:49 Pulse Oximetry (%) 96 01/27/25 15:49 Oxygen Delivery Method Room Air 01/27/25 15:49 O2 saturation 96% on room air within the limits Fall MDM Narrative MDM Narrative:: 59-year-old female presents to the Emergency Department today for complaint of right hip pain and right inguinal pain after fall On exam patient is ambulatory but does report pain in the right inguinal region Imaging obtained no acute emergent findings noted Patient given Toradol for pain Patient discharged home in no distress to follow-up with primary care doctor in the next 24 to 48 hours and for any worsening symptoms to return to the ER immediately Patient data External records reviewed:: [facility] previous records Clinical information provided by:: patient Social determinants that could affect healthcare access:: none Patient has the following chronic illnesses:: See history How is presenting disease/condition affected by chronic disease/condition?: uneffected by Evaluation data The following diagnostics were reviewed and interpreted by me:: radiology exam(s) Lab and/or radiology exams considered but not ordered:: Radiology Interpretation Summary: By me Medications / Prescriptions Medications or Prescriptions considered but not ordered:: Given Medication administrations:: Medication Administration History Discontinued Medications Ketorolac Tromethamine (Ketorolac Inj 30 Mg/Ml Vial) 30 mg IM X1 ONE Stop: 01/27/25 15:58 Last Admin: 01/27/25 16:43 Dose: 30 mg Documented By: Given Consultations Consultation(s) initiated? (list below): No Diagnosis Fall Differential Diagnosis: other (Hip strain, hip fracture) Most likely diagnosis given after review of the tests above:: Hip strain Admission Indicated Admission indicated?: not indicated Admission Request Was there a request for admission?: No Disposition Plan Disposition Plan: Discharge Discharge Attestation Discharge Attestation: The patient and all family members were given an opportunity to ask questions and understood the discharge instructions. Discharge instructions specifically effects, indications for sooner follow up or return to the emergency department, and the expected course of current diagnosis. Patient condition: Stable Discharge Plan Plan Patient Disposition: HOME (Self Care) Disposition Comment: Stable Prescriptions/Referrals Prescriptions/Med Rec: New hydrocodone-acetaminophen 5-325 mg tablet 1 tab PO BID MDD 10 PRN (Reason: pain) Qty: 6 0RF No Action ibuprofen 600 mg tablet 600 mg PO Q8H PRN (Reason: pain) Qty: 20 0RF hydrocodone-acetaminophen 5-325 mg tablet 1 tab PO BID MDD 10 PRN (Reason: pain) Qty: 10 0RF hydrocodone-acetaminophen [[place]] 10-325 mg Tablet 1 tab PO Q4H PRN (Reason: Pain) pregabalin [Lyrica] 75 mg Capsule 75 mg PO BID baclofen 5 mg Tablet 5 mg PO BID fluticasone propionate [Flonase Allergy Relief] 50 mcg/actuation spray,suspension 2 spray intranasal QDAY Qty: 16 0RF Rx Instructions: administer into each nostril albuterol sulfate 90 mcg/actuation HFA aerosol inhaler 2 puff inhalation QID Qty: 8.5 0RF budesonide-formoterol [Symbicort] 80-4.5 mcg/actuation HFA aerosol inhaler 2 puff inhalation BID Qty: 10.2 0RF diphenhydramine HCl [Allergy (diphenhydramine)] 25 mg capsule 25 mg PO TID PRN (Reason: allergy symptoms) Qty: 20 0RF cetirizine [Zyrtec] 10 mg tablet 10 mg PO QDAY PRN (Reason: allergy symptoms) Qty: 20 0RF hydrocortisone 2.5 % cream 1 applic topical BID PRN (Reason: itching) Qty: 30 0RF hydrocortisone 2.5 % cream 1 applic topical BID PRN (Reason: itching) Qty: 30 0RF Referrals: No Primary/Family,Physician [Primary Care Provider] - In 1 week Problem List Clinical Impression: Arthralgia of hip, right Patient/Caregiver Discharge Instructions Education Materials: ED Arthralgia Additional Instructions: Please follow up with your primary care doctor in the next 24-48hrs for any worsening symptoms return here immediately Print Language: Kyrgyz Stand Alone Forms: Isabell Award Info., Patient Portal Info Letter PA/CERTIFIED PROFESSIONAL ERGONOMIST Supervising Physician PA/CERTIFIED PROFESSIONAL ERGONOMIST Supervising Physician: Dr perez
== END 2025-01-27 17:16 | disposition home or self-care (01) ==
PROVIDERS: Emergency Provider Emergency Medicine
DX: M25.551 Pain in right hip (principal)
CPT/HCPCS: 73700; 96372; 99284; J1885

== ENCOUNTER 2025-02-05 17:53 | Emergency (ER) | payer MEDICAID, SELFPAY ==
[2025-02-05 17:55] VITALS: BMI 23.9
[2025-02-05 18:31] VITALS: BP 132/84; PULSE 88; RESP 18; TEMP 37.2; O2SAT 95
--- NOTE | 2025-02-05 18:53 | EDRME_ITS ---
Rapid Medical Screening Exam [facility] Arrival date/time: 02/05/25 17:53 Chief Complaint: Extremity Injury, Lower Time Seen by Provider: 02/05/25 18:05 Vital signs: Vital Signs Temperature 98.9 F 02/05/25 18:31 Pulse Rate 88 02/05/25 18:31 Respiratory Rate 18 02/05/25 18:31 Blood Pressure 132/84 H 02/05/25 18:31 Pulse Oximetry (%) 95 02/05/25 18:31 Oxygen Delivery Method Room Air 02/05/25 18:31 Vital signs reviewed by provider: Yes RME Narrative: 59-year-old female presents with a 10-day history of right hip and pelvis pain secondary to a trip and near fall. She is complaining of right groin pain. She has a history of degenerative disc disease as well as degenerative joint disease. She has been taking Campbell at home without much relief.
--- NOTE | 2025-02-05 18:54 | XR_ITS ---
Examination:Right hip AP, lateral, AP pelvis 3 views Technique: Hip AP lateral, AP pelvis, 3 views Exam date and time:February 05, 2025 1800 hrs. Indications: Injury to right hip 10 days ago, right hip pain. Findings: Advanced right hip osteoarthritis No acute hip fracture Moderate narrowing left hip Left hip bones of the pelvis intact Impression: Advanced right hip osteoarthritis No acute hip or pelvic fracture.
[2025-02-05] MEDS: KETOROLAC INJ 60 MG/2 ML VIAL 30 MG IM (20:00)
--- NOTE | 2025-02-05 21:50 | PD.EDADULT ---
ED General RME/HPI General Chief complaint: Extremity Injury, Lower Stated complaint: PAIN R) LEG SINCE 01/27; TRIPPED Time Seen by Provider: 02/05/25 18:05 Arrival date/time: 02/05/25 17:53 RME / HPI RME / HPI narrative: 59-year-old female presents with a 10-day history of right hip and pelvis pain secondary to a trip and near fall. She is complaining of right groin pain. She has a history of degenerative disc disease as well as degenerative joint disease. She has been taking [place] at home without much relief. Related Data Home Medications ?Medication ?Instructions ?Recorded ?Confirmed baclofen 5 mg tablet 5 mg PO BID 01/02/21 01/02/21 hydrocodone 10 mg-acetaminophen 1 tab PO Q4H PRN Pain 01/02/21 01/02/21 325 mg tablet pregabalin 75 mg capsule (Lyrica) 75 mg PO BID 01/02/21 01/02/21 Previous Rx's ?Medication ?Instructions ?Recorded ibuprofen 600 mg tablet 600 mg PO Q8H PRN pain #20 tabs 06/21/21 hydrocodone 5 mg-acetaminophen 325 1 tab PO BID PRN pain #10 tabs 06/22/21 mg tablet fluticasone propionate 50 2 spray intranasal QDAY #16 grams 10/19/21 mcg/actuation nasal spray,suspension (Flonase Allergy Relief) albuterol sulfate 90 mcg/actuation 2 puff inhalation QID #8.5 grams 05/06/22 aerosol inhaler budesonide-formoterol HFA 80 2 puff inhalation BID #10.2 grams 05/06/22 mcg-4.5 mcg/actuation aerosol inhaler (Symbicort) cetirizine 10 mg tablet (Zyrtec) 10 mg PO QDAY PRN allergy symptoms 03/31/24 #20 tabs diphenhydramine HCl 25 mg capsule 25 mg PO TID PRN allergy symptoms 03/31/24 (Allergy (diphenhydramine)) #20 caps hydrocortisone 2.5 % topical cream 1 applic topical BID PRN itching 04/02/24 #30 grams hydrocortisone 2.5 % topical cream 1 applic topical BID PRN itching 09/14/24 #30 grams hydrocodone 5 mg-acetaminophen 325 1 tab PO BID PRN pain #6 tabs 01/27/25 mg tablet meloxicam 15 mg tablet 15 mg PO QDAY #14 tabs 02/05/25 cyclobenzaprine 10 mg tablet 10 mg PO Q8H PRN muscle spasm #30 02/27/25 tabs lidocaine 5 % topical patch 2 patch topical QDAY PRN pain #30 02/27/25 (Lidoderm) ea ibuprofen 600 mg tablet 600 mg PO Q8H PRN fever or pain 04/14/25 #20 tabs Allergies Allergy/AdvReac Type Severity Reaction Status Date / Time paroxetine Allergy Mild Rash Verified 04/14/25 14:29 sertraline Allergy Mild Rash Verified 04/14/25 14:29 Review of Systems Review of Systems Systems Reviewed: All systems reviewed, normal except as documented Past Medical History Past Medical History NEUROLOGIC: Negative Neurological Disorders CARDIAC: Negative Cardiac Disorders or Congestive Heart Failure RESPIRATORY: Negative Chronic Obstructive Pulmonary Disease (COPD) or Asthma GENITOURINARY: Negative Renal Disease ENDOCRINE: Negative Diabetes Mellitus Type 1 or Diabetes Mellitus Type 2 HEMATOLOGIC: Negative Sickle Cell Disease PSYCHO/SOCIAL: Positive Bipolar Disorder Social History SMOKING STATUS: Heavy (> 1 pack/day) ED Exam Narrative Physical exam: Alert and oriented 59-year-old female, no acute distress. Lungs are clear, regular rate and rhythm. Abdomen is soft and nontender. No CVA tenderness. Right hip tenderness with decreased range of motion secondary to pain. No obvious deformity with leg shortening or rotation. CMS intact distally. Course Course Course Narrative: Patient was given Toradol 30 mg IM. Right hip x-ray with pelvis obtained. Images reveal: Advanced right hip osteoarthritis. No acute hip or pelvic fracture. Patient was fitted with a pair of crutches. She was discharged home in stable and improved condition. She was advised to follow-up with primary care physician. She was encouraged to return to the ED for any new or worsening symptoms. Quality Measures none Orders Category Date Time Status Crutches .NOW Care 02/05/25 21:46 Completed XR hip RT w pelvis 2-3V Stat Exams 02/05/25 18:54 Completed Ketorolac Inj [Toradol Inj] Med 02/05/25 18:54 Discontinued 30 mg IM X1 ONE Vital Signs Vital signs: Vital Signs Temperature 98.9 F 02/05/25 18:31 Pulse Rate 88 02/05/25 18:31 Respiratory Rate 18 04/20/25 18:31 Blood Pressure 132/84 H 02/05/25 18:31 Pulse Oximetry (%) 95 02/05/25 18:31 Oxygen Delivery Method Room Air 02/05/25 18:31 Discharge Plan Plan Patient Disposition: HOME (Self Care) Discharge Disposition comment: Stable and improved Prescriptions/Referrals Prescriptions/Med Rec: New meloxicam 15 mg tablet 15 mg PO QDAY Qty: 14 0RF No Action ibuprofen 600 mg tablet 600 mg PO Q8H PRN (Reason: pain) Qty: 20 0RF hydrocodone-acetaminophen 5-325 mg tablet 1 tab PO BID MDD 10 PRN (Reason: pain) Qty: 10 0RF hydrocodone-acetaminophen [[place]] 10-325 mg Tablet 1 tab PO Q4H PRN (Reason: Pain) pregabalin [Lyrica] 75 mg Capsule 75 mg PO BID baclofen 5 mg Tablet 5 mg PO BID fluticasone propionate [Flonase Allergy Relief] 50 mcg/actuation spray,suspension 2 spray intranasal QDAY Qty: 16 0RF Rx Instructions: administer into each nostril albuterol sulfate 90 mcg/actuation HFA aerosol inhaler 2 puff inhalation QID Qty: 8.5 0RF budesonide-formoterol [Symbicort] 80-4.5 mcg/actuation HFA aerosol inhaler 2 puff inhalation BID Qty: 10.2 0RF diphenhydramine HCl [Allergy (diphenhydramine)] 25 mg capsule 25 mg PO TID PRN (Reason: allergy symptoms) Qty: 20 0RF cetirizine [Zyrtec] 10 mg tablet 10 mg PO QDAY PRN (Reason: allergy symptoms) Qty: 20 0RF hydrocortisone 2.5 % cream 1 applic topical BID PRN (Reason: itching) Qty: 30 0RF hydrocortisone 2.5 % cream 1 applic topical BID PRN (Reason: itching) Qty: 30 0RF cyclobenzaprine 10 mg tablet 10 mg PO Q8H PRN (Reason: muscle spasm) Qty: 30 0RF lidocaine [Lidoderm] 5 % adhesive patch,medicated 2 patch topical QDAY PRN (Reason: pain) Qty: 30 0RF Rx Instructions: leave on most painful area for up to 12 hrs hydrocodone-acetaminophen 5-325 mg tablet 1 tab PO BID MDD 10 PRN (Reason: pain) Qty: 6 0RF ibuprofen 600 mg tablet 600 mg PO Q8H PRN (Reason: fever or pain) Qty: 20 0RF Referrals: No Primary/Family,Physician [Primary Care Provider] - In 1 week Problem List Clinical Impression: Hip arthritis, Sprain, Crutches as ambulation aid Patient/Caregiver Discharge Instructions Education Materials: Hip Osteoarthritis Additional Instructions: Follow-up with your primary care physician in 24 to 48 hours. Return to the ED for any new or worsening symptoms. Print Language: Hungarian Stand Alone Forms: [employer] Award Info., Patient Portal Info Letter PA/MATERIAL LOADER Supervising Physician PA/MATERIAL LOADER Supervising Physician: Dr Mary PEMBERTON Narrative [facility] hospital course: 59-year-old female presents with a 10-day history of right hip and pelvis pain secondary to a trip and near fall. She is complaining of right groin pain. She has a history of degenerative disc disease as well as degenerative joint disease. She has been taking [place] at home without much relief. Alert and oriented 59-year-old female, no acute distress. Lungs are clear, regular rate and rhythm. Abdomen is soft and nontender. No CVA tenderness. Right hip tenderness with decreased range of motion secondary to pain. No obvious deformity with leg shortening or rotation. CMS intact distally. Patient was given Toradol 30 mg IM. Right hip x-ray with pelvis obtained. Images reveal: Advanced right hip osteoarthritis. No acute hip or pelvic fracture. Patient was fitted with a pair of crutches. She was discharged home in stable and improved condition. She was advised to follow-up with primary care physician. She was encouraged to return to the ED for any new or worsening symptoms. Clinical Information Provided by patient Medical Records Reviewed [facility] Meds/Rx Considered, not Ordered None Describe details: N/A Labs/Rad/Tests considered, not Ordered None Describe details: N/A Chronic Illness/Social Conditions which may negatively complicate care or outcome(s)-explain: other (History of osteoarthritis) EKG EKG not done Lab Interpretation Labs: none Lab(s) interpretation(s): N/A Imaging Imaging interpretation: see narrative above Radiology reports / interpretation(s): As noted above Medication Administration(s) Medication Administration History Discontinued Medications Ketorolac Tromethamine (Ketorolac Inj 60 Mg/2 Ml Vial) 30 mg IM X1 ONE Stop: 02/05/25 18:55 Last Admin: 02/05/25 20:00 Dose: 30 mg Documented By: GEOFFREY As noted above Diagnosis Differential diagnosis: Right hip contusion, right hip fx, pelvic fx, exacerbation of djd Differential dx and/or dx ruled out: Right hip or pelvic fracture Most likely dx, and/or detailed dx discussion: Exacerbation of right hip osteoarthritis/DJD Dispositon Disposition: Discharge Home Disposition comments: Patient is stable for discharge
== END 2025-02-05 21:57 | disposition home or self-care (01) ==
PROVIDERS: Emergency Provider Emergency Medicine
DX: S73.101A Unspecified sprain of right hip, initial encounter (principal); M16.11 Unilateral primary osteoarthritis, right hip; W01.0XXA Fall on same level from slipping, tripping and stumbling without subsequent striking against object, initial encounter
CPT/HCPCS: 73502; 96372; 99283; J1885

== ENCOUNTER 2025-02-27 19:00 | Emergency (ER) | payer MEDICAID, SELFPAY ==
--- NOTE | 2025-02-27 19:17 | PD.EDCHEST ---
ED Chest Pain RME/HPI General Chief Complaint: Chest Pain Stated Complaint: CHEST PAIN UNDER L) ARM Time Seen by Provider: 02/27/25 19:10 Arrival date/time: 02/27/25 19:00 RME / HPI RME / HPI narrative: This section includes all my notes and documentations, including HPI, PE, and ED course. Rolando Hernandez MD HPI: 60 y/o female with Hx of COPD presents to ED c/o left-sided chest pain for couple weeks. And shortness of breath x approximately 12 hours. Pain is currently a 7/10 with 0/10 being yesterday. Patient admits to smoking, but reducing intake from 2 packs per day to only 1 pack per day. She attempted to smoke a cigarette a few minutes ago, but was unable to. Patient also admits to a mechanical fall approximately 3 weeks ago, landing on her left side.. No other complaints. ROS: All negative except as documented in HPI. Physical Exam: General: Alert and oriented. No acute distress when remaining still. Eyes: Conjunctivae and lids clear. ENT: No nasal congestion. Pharynx normal. Tympanic membrane normal bilaterally. Neck: Supple. Heart: RRR. Lungs: No respiratory distress. Moderately decreased air movement with BL rhonchi. Chest: Palpation of the lateral rib cage superiorly reproduces her pain. Abdomen: Soft and nontender. Normal bowel sounds. No distension. No rebound or guarding. Back: No tenderness. Skin: Warm and dry. Neuro: Alert and oriented X 3. I reviewed all diagnostic test results. My interpretation of the EKG is: Sinus rhythm (74 bpm) with nonspecific ST-T changes. My review of the Chest CT report is NAD. Blood tests unremarkable except K 3.3. At this point, diagnoses include COPD exacerbation, Chest wall pain. Treatment here included Potassium Chloride, Lidocaine patch, Prednisone, Albuterol/Ipratroprium Duoneb. Significant improvement noted. Recommend outpatient treatment. Based on my best medical judgment, made decision no further evaluation or treatment indicated at this time. Patient understands and agrees to the discharge instructions customized and printed, see below. Discharge instructions from Dr. Hernandez: --After extensive evaluation, there is no life-threatening condition. Such as heart attack or pneumothorax (collapsed lung). --You have COPD flareup. --No physical exertion for 3 days to help rest the lungs. ?No smoking or exposure to smoking or pets or dust or cold or humidity. --Zithromax to kill the germs causing the flareup. --Prednisone to help decrease the swelling in the airways. --Albuterol 2 puffs or neb treatment every 4-6 hours for 3 days to help keep the airways open. Then as needed for cough or shortness of breath. --And your left-sided chest wall pain is due to muscle strain between the ribs from your recent fall. Lidocaine patches and cyclobenzaprine as needed. --See a private doctor next week if not completely better. --Seek immediate medical care with worsening or with any concerns. Rolando Hernandez MD Related Data Home Medications ?Medication ?Instructions ?Recorded ?Confirmed baclofen 5 mg tablet 5 mg PO BID 01/02/21 01/02/21 hydrocodone 10 mg-acetaminophen 1 tab PO Q4H PRN Pain 01/02/21 01/02/21 325 mg tablet pregabalin 75 mg capsule (Lyrica) 75 mg PO BID 01/02/21 01/02/21 Previous Rx's ?Medication ?Instructions ?Recorded ibuprofen 600 mg tablet 600 mg PO Q8H PRN pain #20 tabs 06/21/21 hydrocodone 5 mg-acetaminophen 325 1 tab PO BID PRN pain #10 tabs 06/22/21 mg tablet fluticasone propionate 50 2 spray intranasal QDAY #16 grams 10/19/21 mcg/actuation nasal spray,suspension (Flonase Allergy Relief) albuterol sulfate 90 mcg/actuation 2 puff inhalation QID #8.5 grams 05/06/22 aerosol inhaler budesonide-formoterol HFA 80 2 puff inhalation BID #10.2 grams 05/06/22 mcg-4.5 mcg/actuation aerosol inhaler (Symbicort) cetirizine 10 mg tablet (Zyrtec) 10 mg PO QDAY PRN allergy symptoms 03/31/24 #20 tabs diphenhydramine HCl 25 mg capsule 25 mg PO TID PRN allergy symptoms 03/31/24 (Allergy (diphenhydramine)) #20 caps hydrocortisone 2.5 % topical cream 1 applic topical BID PRN itching 04/02/24 #30 grams hydrocortisone 2.5 % topical cream 1 applic topical BID PRN itching 09/14/24 #30 grams hydrocodone 5 mg-acetaminophen 325 1 tab PO BID PRN pain #6 tabs 01/27/25 mg tablet meloxicam 15 mg tablet 15 mg PO QDAY #14 tabs 02/05/25 azithromycin 500 mg tablet 500 mg PO QDAY 3 days #3 tabs 02/27/25 (Zithromax TRI-EDYTA) cyclobenzaprine 10 mg tablet 10 mg PO Q8H PRN muscle spasm #30 02/27/25 tabs lidocaine 5 % topical patch 2 patch topical QDAY PRN pain #30 02/27/25 (Lidoderm) ea prednisone 20 mg tablet 20 mg PO BID 3 days #6 tabs 02/27/25 Allergies Allergy/AdvReac Type Severity Reaction Status Date / Time paroxetine Allergy Mild Rash Verified 02/27/25 19:03 sertraline Allergy Mild Rash Verified 02/27/25 19:03 Review of Systems Review of Systems Systems Reviewed: All systems reviewed, normal except as documented Past Medical History Past Medical History RESPIRATORY: Positive Chronic Obstructive Pulmonary Disease (COPD) PSYCHO/SOCIAL: Positive Bipolar Disorder Social History SMOKING STATUS: Current every day smoker ED Exam Narrative Physical exam: Refer to HPI above Course Quality Measures none Orders Category Date Time Status EKG (ED ONLY) *Do not use* NOW Care 02/27/25 19:[address] chest wo con Stat Exams 02/27/25 19:20 Completed EKG (ED Only) Stat Exams 02/27/25 19:12 Ordered CBC Stat Lab 02/27/25 19:56 Completed CMP [Comprehensive Metabolic Panel] Stat Lab 02/27/25 19:56 Completed Magnesium Stat Lab 02/27/25 19:56 Completed Troponin I Stat Lab 02/27/25 19:56 Completed Albuterol/Ipratr Rt Nancy [Duoneb Rt Nancy] Med 02/27/25 19:18 Discontinued 3 ml INH X1 ONE KCL 10% Liq UDC 15 ML Med 02/27/25 20:39 Discontinued 40 meq PO X1 ONE Lidocaine 5% Patch Med 02/27/25 19:18 Discontinued 2 patch TOP X1 ONE Potassium Chloride [K-Dur] Med 02/27/25 20:53 Discontinued 40 meq PO X1 ONE predniSONE Med 02/27/25 19:18 Discontinued 60 mg PO X1 ONE Vital Signs Vital signs: Vital Signs Temperature 97.9 F 02/27/25 19:27 Pulse Rate 97 02/27/25 19:27 Respiratory Rate 16 02/27/25 19:27 Blood Pressure 142/82 H 02/27/25 19:27 Pulse Oximetry (%) 96 02/27/25 19:27 Oxygen Delivery Method Room Air 02/27/25 19:27 Chest Pain MDM Narrative MDM Narrative:: Scribe Attestation: Gracie Cortez, am scribing for and in the presence of Dr. Hernandez. Provider Notation: Although this document has been carefully reviewed, there may still be some phonetic and other typographical errors.? These errors are purely grammatical due to imperfections in the software program and should not be construed in any way to? compromise the substance of the patient's medical care during this visit. 60 y/o female with Hx of COPD presents to ED c/o left-sided chest pain and shortness of breath x approximately 12 hours. Patient also admits to a mechanical fall approximately 3 weeks ago. Patient data External records reviewed:: [facility] previous records (Reviewed prior ED records from 02/05/25. Patient was seen for Crutches as ambulation aid.) Clinical information provided by:: patient Social determinants that could affect healthcare access:: none Patient has the following chronic illnesses:: COPD, Bipolar Disorder. How is presenting disease/condition affected by chronic disease/condition?: exacerbated by Evaluation data The following diagnostics were reviewed and interpreted by me:: EKG tracing(s) (My interpretation of the EKG is: Sinus rhythm (74 bpm) with nonspecific ST-T changes. Rolando Hernandez MD) Lab and/or radiology exams considered but not ordered:: None Interpretation Summary: I reviewed all diagnostic test results. My interpretation of the EKG is: Sinus rhythm (74 bpm) with nonspecific ST-T changes. My review of the Chest CT report is NAD. Blood tests unremarkable except K 3.3. Medications / Prescriptions Medications or Prescriptions considered but not ordered:: None Medication administrations:: Medication Administration History Discontinued Medications Albuterol/Ipratropium (Albuterol/Ipratropium (Duoneb) Rt Nancy 3 Ml Nebu) 3 ml INH X1 ONE Stop: 02/27/25 19:19 Last Admin: 02/27/25 19:57 Dose: 3 ml Documented By: JEANNA Lidocaine (Lidocaine 5% 1 Patch) 2 patch TOP X1 ONE Stop: 02/27/25 19:19 Last Admin: 02/27/25 20:02 Dose: Not Given Documented By: KF Non-Admin Reason: Patient Refused Potassium Chloride (Potassium Chloride 10% 20 Meq/15 Ml Udc) 40 meq PO X1 ONE Stop: 02/27/25 20:40 Last Admin: 02/27/25 20:50 Dose: Not Given Documented By: KF Non-Admin Reason: Wrong Patient Potassium Chloride (Potassium Chloride 20 Meq Tabcr) 40 meq PO X1 ONE Stop: 02/27/25 20:54 Last Admin: 02/27/25 21:12 Dose: 40 meq Documented By: KF Prednisone (Prednisone 20 Mg Tablet) 60 mg PO X1 ONE Stop: 02/27/25 19:19 Last Admin: 02/27/25 20:01 Dose: 60 mg Documented By: HEATHER Albuterol/Ipratroprium Duoneb, Lidocaine patch, Prednisone, Potassium Chloride. Consultations Consultation(s) initiated? (list below): No Diagnosis Chest Pain Differential Diagnosis: fracture of rib, pneumothorax, stable angina, unstable angina pectoris, atypical chest pain, st elevation myocardial infarction, costochondritis, chest pain and biliary colic Most likely diagnosis given after review of the tests above:: COPD exacerbation, Chest wall pain Admission Indicated Admission indicated?: not indicated Explain why admission is indicated or not indicated:: With significant improvement, there was no indication for admission. Admission Request Was there a request for admission?: No Disposition Plan Disposition Plan: Discharge Discharge Attestation Discharge Attestation: The patient and all family members were given an opportunity to ask questions and understood the discharge instructions. Discharge instructions specifically effects, indications for sooner follow up or return to the emergency department, and the expected course of current diagnosis. Patient condition: Stable Discharge Plan Plan Patient Disposition: HOME (Self Care) Prescriptions/Referrals Prescriptions/Med Rec: New cyclobenzaprine 10 mg tablet 10 mg PO Q8H PRN (Reason: muscle spasm) Qty: 30 0RF prednisone 20 mg tablet 20 mg PO BID 3 Days Qty: 6 0RF Taper: Prednisone Taper 20 mg DAILY for 2 Days and 0 Hour 10 mg DAILY for 2 Days and 0 Hour 5 mg DAILY for 7 Days and 0 Hour lidocaine [Lidoderm] 5 % adhesive patch,medicated 2 patch topical QDAY PRN (Reason: pain) Qty: 30 0RF Rx Instructions: leave on most painful area for up to 12 hrs azithromycin [Zithromax TRI-EDYTA] 500 mg tablet 500 mg PO QDAY 3 Days Qty: 3 0RF No Action ibuprofen 600 mg tablet 600 mg PO Q8H PRN (Reason: pain) Qty: 20 0RF hydrocodone-acetaminophen 5-325 mg tablet 1 tab PO BID MDD 10 PRN (Reason: pain) Qty: 10 0RF hydrocodone-acetaminophen [[place]] 10-325 mg Tablet 1 tab PO Q4H PRN (Reason: Pain) pregabalin [Lyrica] 75 mg Capsule 75 mg PO BID baclofen 5 mg Tablet 5 mg PO BID fluticasone propionate [Flonase Allergy Relief] 50 mcg/actuation spray,suspension 2 spray intranasal QDAY Qty: 16 0RF Rx Instructions: administer into each nostril albuterol sulfate 90 mcg/actuation HFA aerosol inhaler 2 puff inhalation QID Qty: 8.5 0RF budesonide-formoterol [Symbicort] 80-4.5 mcg/actuation HFA aerosol inhaler 2 puff inhalation BID Qty: 10.2 0RF diphenhydramine HCl [Allergy (diphenhydramine)] 25 mg capsule 25 mg PO TID PRN (Reason: allergy symptoms) Qty: 20 0RF cetirizine [Zyrtec] 10 mg tablet 10 mg PO QDAY PRN (Reason: allergy symptoms) Qty: 20 0RF hydrocortisone 2.5 % cream 1 applic topical BID PRN (Reason: itching) Qty: 30 0RF hydrocortisone 2.5 % cream 1 applic topical BID PRN (Reason: itching) Qty: 30 0RF meloxicam 15 mg tablet 15 mg PO QDAY Qty: 14 0RF hydrocodone-acetaminophen 5-325 mg tablet 1 tab PO BID MDD 10 PRN (Reason: pain) Qty: 6 0RF Referrals: Joy Quinones FNP [Primary Care Provider] - In 1 week Problem List Clinical Impression: COPD exacerbation, Chest wall pain Patient/Caregiver Discharge Instructions Discharge Activity: activity as tolerated Education Materials: ED COPD Flare, ED Chest Wall Strain (Child) Additional Instructions: Discharge instructions from Dr. Hernandez: --After extensive evaluation, there is no life-threatening condition. Such as heart attack or pneumothorax (collapsed lung). --You have COPD flareup. --No physical exertion for 3 days to help rest the lungs. ?No smoking or exposure to smoking or pets or dust or cold or humidity. --Zithromax to kill the germs causing the flareup. --Prednisone to help decrease the swelling in the airways. --Albuterol 2 puffs or neb treatment every 4-6 hours for 3 days to help keep the airways open. Then as needed for cough or shortness of breath. --And your left-sided chest wall pain is due to muscle strain between the ribs from your recent fall. Lidocaine patches and cyclobenzaprine as needed. --See a private doctor next week if not completely better. --Seek immediate medical care with worsening or with any concerns. Print Language: Georgian Stand Alone Forms: [employer] Award Info., Patient Portal Info Letter
--- NOTE | 2025-02-27 19:20 | XR_ITS ---
Examination: CT chest, without intravenous contrast. Sagittal and coronal 2-D reconstructions. Exam date and time: February 27, 2025 1946 hours INDICATIONS: Chest pain after falling today CTDI:vol (mGy) 8 DLP: (mGycm) 313 Technique: Multiple 3.0 mm axial sections of the chest to been obtained. Bone and lung density settings are obtained. Sagittal and coronal 2-D reconstructions have been obtained. Low dose protocols were performed. One or more of the following dose reduction techniques were used; automated exposure control, adjustment of the mA and/or KV according to patient size, use of iterative reconstruction technique. Findings: Thoracic aorta and pulmonary arteries intact No hemopericardium No pneumothorax pulmonary contusion or hemothorax Sternal segments appear intact No thoracic vertebral body compression fracture Ribs appear intact No visualized liver or splenic or renal laceration Absent gallbladder Abdominal aorta intact IMPRESSION: Thoracic aorta pulmonary arteries intact No pneumothorax, hemopericardium, pulmonary contusion or hemothorax Osseous structures appear intact
[2025-02-27 19:27] VITALS: BP 142/82; PULSE 97; RESP 16; TEMP 36.6; O2SAT 96
[2025-02-27] MEDS: ALBUTEROL/IPRATROPIUM (Duoneb) RT SOL 3 ML NEBU INH (19:57)
[2025-02-27 19:58] VITALS: PULSE 99; RESP 18; O2SAT 99
[2025-02-27 20:00] LABS: Basophils # (Auto) 0.1 Thou/mm3 (0.0-0.2); Basophils % (Auto) 1 % (0-2.5); Eosinophils # (Auto) 0.3 Thou/mm3 (0.0-0.5); Eosinophils % (Auto) 4 % (0-10); Hematocrit 45.7 % (36.0-46.0); Hemoglobin 14.8 g/dL (12.0-16.0); Immature Granulocytes % (Auto) 0 % (0-0); Immature Granulocytes Auto 0.01 Thou/mm3 (0.00-0.00); Lymphocytes # (Auto) 3.2 Thou/mm3 (1.0-4.8); Lymphocytes % (Auto) 37 % (10-50); Mean Corpuscular HGB Conc 32.4 g/dl (31.0-37.0); Mean Corpuscular Hemoglobin 30.6 pg (25.0-35.0); Mean Corpuscular Volume 95 fL (80-100); Monocytes # (Auto) 0.6 Thou/mm3 (0.0-0.8); Monocytes % (Auto) 7 % (0-12); Neutrophils # (Auto) 4.5 Thou/mm3 (1.8-7.7); Neutrophils % (Auto) 52 % (37-80); Nucleated Red Blood Cell % 0 /100 WBC (0); Platelet Count 274 Thou/mm3 (140-440); RDW Standard Deviation 44.5 fL (36.4-46.3); Red Blood Count 4.83 Miln/mm3 (4.00-5.20); White Blood Count 8.7 Thou/mm3 (3.6-11.0)
[2025-02-27] MEDS: predniSONE 20 MG TABLET 60 MG PO (20:01)
[2025-02-27 20:24] LABS: Alanine Aminotransferase 19 U/L (10-49); Alkaline Phosphatase 72 U/L (46-116); Anion Gap 4 (7-16); Aspartate Amino Transferase 20 U/L (0-34); BUN/Creatinine Ratio 19 Ratio (12-20); Bilirubin,Total 0.3 mg/dL (0.3-1.2); Blood Urea Nitrogen 13 mg/dL (9-23); Calcium 9.6 mg/dL (8.3-10.6); Calcium (Corrected) 9.6 mg/dL (8.5-10.1); Carbon Dioxide 30.9 mMol/L (20.0-31.0); Chloride 102 mMol/L (98-107); Creatinine (Component) 0.7 mg/dL (0.6-1.3); Globulin 2.5 gm/dL (2.3-3.5); Glucose 133 mg/dL (74-106); Magnesium 1.8 mg/dL (1.6-2.6); Osmolality,Calculated 275 (275-295); Potassium 3.3 mMol/L (3.4-5.1); Sodium 137 mMol/L (136-145); Total Protein 7.5 gm/dL (5.7-8.2); Troponin I < 0.020 ng/mL (0.0-0.045); eGFR > 60 See Note
[2025-02-27] MEDS: POTASSIUM CHLORIDE 20 mEq TABCR 40 MEQ PO (21:12)
== END 2025-02-27 22:12 | disposition home or self-care (01) ==
PROVIDERS: Emergency Provider Emergency Medicine; PCP Nurse Practitioner
DX: J44.1 Chronic obstructive pulmonary disease with (acute) exacerbation (principal); F17.210 Nicotine dependence, cigarettes, uncomplicated; Z79.51 Long term (current) use of inhaled steroids
CPT/HCPCS: 36415; 71250; 80053; 83735; 84484; 85025; 93005; 94640; 99284; A9270; J7512

== ENCOUNTER 2025-04-14 14:08 | Emergency (ER) | payer MEDICAID, SELFPAY ==
[2025-04-14 14:14] VITALS: BP 107/71; PULSE 94; RESP 18; TEMP 36.8; O2SAT 95
[2025-04-14 14:29] VITALS: PULSE 76; RESP 18; O2SAT 98
--- NOTE | 2025-04-14 14:45 | XR_ITS ---
Examination:Left hip AP, lateral, AP pelvis 3 views Technique: Hip AP lateral, AP pelvis, 3 views Exam date and time:April 14, 2025 1455 hours INDICATIONS: Patient fell 3 days ago with into the left hip, left hip pain. FINDINGS: Moderate narrowing left hip joint No left hip fracture or dislocation Advanced right hip osteoarthritis No right hip or pelvic fracture noted IMPRESSION: No hip or pelvic fracture noted Recommend short-term follow-up AP pelvis as clinically warranted.
--- NOTE | 2025-04-14 14:45 | PD.EDFALL ---
ED Fall Injury RME/HPI General Chief Complaint: Fall Stated Complaint: BACK PAIN Time Seen by Provider: 04/14/25 14:41 Source: patient Arrival date/time: 04/14/25 14:08 60-year-old female with no known medical history presents to the emergency room with a chief complaint of pain and tenderness to her left hip after a ground-level fall that occurred 1 hour ago. Mode of arrival: ambulatory Limitations: no limitations Related Data Home Medications ?Medication ?Instructions ?Recorded ?Confirmed baclofen 5 mg tablet 5 mg PO BID 01/02/21 01/02/21 hydrocodone 10 mg-acetaminophen 1 tab PO Q4H PRN Pain 01/02/21 01/02/21 325 mg tablet pregabalin 75 mg capsule (Lyrica) 75 mg PO BID 01/02/21 01/02/21 Previous Rx's ?Medication ?Instructions ?Recorded ibuprofen 600 mg tablet 600 mg PO Q8H PRN pain #20 tabs 06/21/21 hydrocodone 5 mg-acetaminophen 325 1 tab PO BID PRN pain #10 tabs 06/22/21 mg tablet fluticasone propionate 50 2 spray intranasal QDAY #16 grams 10/19/21 mcg/actuation nasal spray,suspension (Flonase Allergy Relief) albuterol sulfate 90 mcg/actuation 2 puff inhalation QID #8.5 grams 05/06/22 aerosol inhaler budesonide-formoterol HFA 80 2 puff inhalation BID #10.2 grams 05/06/22 mcg-4.5 mcg/actuation aerosol inhaler (Symbicort) cetirizine 10 mg tablet (Zyrtec) 10 mg PO QDAY PRN allergy symptoms 03/31/24 #20 tabs diphenhydramine HCl 25 mg capsule 25 mg PO TID PRN allergy symptoms 03/31/24 (Allergy (diphenhydramine)) #20 caps hydrocortisone 2.5 % topical cream 1 applic topical BID PRN itching 04/02/24 #30 grams hydrocortisone 2.5 % topical cream 1 applic topical BID PRN itching 09/14/24 #30 grams hydrocodone 5 mg-acetaminophen 325 1 tab PO BID PRN pain #6 tabs 01/27/25 mg tablet meloxicam 15 mg tablet 15 mg PO QDAY #14 tabs 02/05/25 cyclobenzaprine 10 mg tablet 10 mg PO Q8H PRN muscle spasm #30 02/27/25 tabs lidocaine 5 % topical patch 2 patch topical QDAY PRN pain #30 02/27/25 (Lidoderm) ea ibuprofen 600 mg tablet 600 mg PO Q8H PRN fever or pain 04/14/25 #20 tabs Allergies Allergy/AdvReac Type Severity Reaction Status Date / Time paroxetine Allergy Mild Rash Verified 04/14/25 14:29 sertraline Allergy Mild Rash Verified 04/14/25 14:29 Review of Systems Review of Systems Systems Reviewed: All systems reviewed, normal except as documented Constitutional Constitutional: Reports system reviewed and no additional complaints, except as documented, Denies fatigue, Denies fever(s), Denies headache(s) and Denies weakness Eyes Eyes: Reports system reviewed and no additional complaints, except as documented, Denies blurry vision and Denies change in vision ENT Ears, Nose, Mouth, and Throat: Reports system reviewed and no additional complaints, except as documented, Denies otalgia, Denies headache(s), Denies nasal congestion, Denies throat swelling and Denies vertigo Cardiovascular Cardiovascular: Reports system reviewed and no additional complaints, except as documented, Denies chest pain, Denies dyspnea and Denies dyspnea on exertion Respiratory Respiratory: Reports system reviewed and no additional complaints, except as documented, Denies chest congestion, Denies cough, Denies dyspnea, Denies dyspnea on exertion and Denies wheezing Gastrointestinal Gastrointestinal: Reports system reviewed and no additional complaints, except as documented, Denies abdominal pain, Denies cramping, Denies nausea and Denies vomiting Genitourinary Genitourinary: Reports system reviewed and no additional complaints, except as documented Musculoskeletal Musculoskeletal: Reports system reviewed and no additional complaints, except as documented, Reports abnormal gait, Reports arthralgias, Denies back pain and Reports limited range of motion Integumentary/Breasts Skin/Breast: Reports system reviewed and no additional complaints, except as documented and Denies wounds Neurologic Neurologic: Reports system reviewed and no additional complaints, except as documented, Reports abnormal gait, Denies confusion, Denies headache(s), Denies lack of coordination, Denies vertigo and Denies weakness Psychiatric Psychiatric: Reports system reviewed and no additional complaints, except as documented, Denies anxiety, Denies confusion, Denies depression, Denies paranoia, Denies suicidal ideation and Denies tactile hallucinations Endocrine Endocrine: Reports system reviewed and no additional complaints, except as documented and Denies fatigue Hematologic/Lymphatic Hematologic/Lymphatic: Reports system reviewed and no additional complaints, except as documented and Denies lymphadenopathy Allergic/Immunologic Allergic/Immunologic: Reports system reviewed and no additional complaints, except as documented, Denies throat swelling, Denies urticaria and Denies wheezing Past Medical History Past Medical History NEUROLOGIC: Negative Neurological Disorders CARDIAC: Negative Cardiac Disorders or Congestive Heart Failure RESPIRATORY: Positive Chronic Obstructive Pulmonary Disease (COPD); Negative Asthma GENITOURINARY: Negative Renal Disease ENDOCRINE: Negative Diabetes Mellitus Type 1 or Diabetes Mellitus Type 2 HEMATOLOGIC: Negative Sickle Cell Disease PSYCHO/SOCIAL: Positive Bipolar Disorder Social History SMOKING STATUS: Current every day smoker ED Exam General Limitations: Present no limitations General appearance: Present alert and in no apparent distress Head Head exam: Present atraumatic Eye Eye exam: Present normal appearance, PERRL and EOMI ENT ENT exam: Present normal exam, normal oropharynx and mucous membranes moist Neck Neck exam: Present normal inspection, full ROM and trachea midline Chest Chest inspection: Present normal inspection and symmetric chest wall rise Respiratory Respiratory exam: Present normal lung sounds bilaterally Cardiovascular Cardiovascular exam: Present regular rate, normal rhythm and normal heart sounds Abdominal Exam Abdominal exam: Present soft and normal bowel sounds Extremities Exam Extremities exam: Present normal inspection and full ROM Expanded Lower Extremity Exam Hip/Pelvis exam: Present full ROM, tenderness, external rotation, internal rotation and pelvis stable; Absent shortening Back Exam Back exam: Present normal inspection and full ROM Neurological Exam Neurological exam: Present alert, oriented X3 and CN II-XII intact Psychiatric Psychiatric exam: Present normal affect and normal mood Skin Skin exam: Present warm, dry, intact and normal color Course Quality Measures none Orders Category Date Time Status XR hip LT w pelvis 2-3V Stat Exams 04/14/25 14:45 Completed HYDROcodone*/APAP 5/325 [Freeland 5/325] Med 04/14/25 14:45 Discontinued 1 tab PO X1 ONE Vital Signs Vital signs: Vital Signs Temperature 98.2 F 04/14/25 14:14 Pulse Rate 94 04/14/25 14:14 Respiratory Rate 18 04/14/25 14:14 Blood Pressure 107/71 04/14/25 14:14 Pulse Oximetry (%) 95 04/14/25 14:14 Oxygen Delivery Method Room Air 04/14/25 14:14 O2 saturation 95% within normal limits Fall MDM Narrative MDM Narrative:: 60-year-old female with no known medical history presents to the emergency room with a chief complaint of pain and tenderness to her left hip after a ground-level fall that occurred 1 hour ago. Patient is hemodynamically stable and in no apparent distress Physical examination shows some left-sided sciatic notch tenderness and pain to her left hip. Patient has active range of motion and is able to ambulate. X-ray of the pelvis was completed and was negative for any acute fractures or dislocations The findings were consistent with sciatica. Patient was discharged and educated to follow-up with primary care provider in the next 24 to 48 hours and return to the emergency room for any evidence of worsening signs or symptoms Patient data External records reviewed:: [facility] previous records Clinical information provided by:: patient Social determinants that could affect healthcare access:: none Patient has the following chronic illnesses:: No chronic illness How is presenting disease/condition affected by chronic disease/condition?: no chronic disease Evaluation data The following diagnostics were reviewed and interpreted by me:: lab results and radiology exam(s) Lab and/or radiology exams considered but not ordered:: Labs and radiology exams considered and ordered Interpretation Summary: Pelvic [id number]: Moderate narrowing left hip joint No left hip fracture or dislocation Advanced right hip osteoarthritis No right hip or pelvic fracture noted IMPRESSION: No hip or pelvic fracture noted Recommend short-term follow-up AP pelvis as clinically warranted. Medications / Prescriptions Medications or Prescriptions considered but not ordered:: Medication given Medication administrations:: Medication Administration History Discontinued Medications Hydrocodone Bitart/Acetaminophen (Hydrocodone/Apap 5/325 Tablet) 1 tab PO X1 ONE Stop: 04/14/25 14:46 Last Admin: 04/14/25 14:49 Dose: 1 tab Documented By: CN Medication given Consultations Consultation(s) initiated? (list below): No Diagnosis Fall Differential Diagnosis: other (Hip fracture/hip contusion/sciatica) Most likely diagnosis given after review of the tests above:: Sciatica Admission Indicated Admission indicated?: not indicated Admission Request Was there a request for admission?: No Disposition Plan Disposition Plan: Discharge Discharge Attestation Discharge Attestation: The patient and all family members were given an opportunity to ask questions and understood the discharge instructions. Discharge instructions specifically effects, indications for sooner follow up or return to the emergency department, and the expected course of current diagnosis. Patient condition: Stable Discharge Plan Plan Patient Disposition: HOME (Self Care) Discharge Disposition comment: Stable Prescriptions/Referrals Prescriptions/Med Rec: New ibuprofen 600 mg tablet 600 mg PO Q8H PRN (Reason: fever or pain) Qty: 20 0RF No Action ibuprofen 600 mg tablet 600 mg PO Q8H PRN (Reason: pain) Qty: 20 0RF hydrocodone-acetaminophen 5-325 mg tablet 1 tab PO BID MDD 10 PRN (Reason: pain) Qty: 10 0RF hydrocodone-acetaminophen [Freeland] 10-325 mg Tablet 1 tab PO Q4H PRN (Reason: Pain) pregabalin [Lyrica] 75 mg Capsule 75 mg PO BID baclofen 5 mg Tablet 5 mg PO BID fluticasone propionate [Flonase Allergy Relief] 50 mcg/actuation spray,suspension 2 spray intranasal QDAY Qty: 16 0RF Rx Instructions: administer into each nostril albuterol sulfate 90 mcg/actuation HFA aerosol inhaler 2 puff inhalation QID Qty: 8.5 0RF budesonide-formoterol [Symbicort] 80-4.5 mcg/actuation HFA aerosol inhaler 2 puff inhalation BID Qty: 10.2 0RF diphenhydramine HCl [Allergy (diphenhydramine)] 25 mg capsule 25 mg PO TID PRN (Reason: allergy symptoms) Qty: 20 0RF cetirizine [Zyrtec] 10 mg tablet 10 mg PO QDAY PRN (Reason: allergy symptoms) Qty: 20 0RF hydrocortisone 2.5 % cream 1 applic topical BID PRN (Reason: itching) Qty: 30 0RF hydrocortisone 2.5 % cream 1 applic topical BID PRN (Reason: itching) Qty: 30 0RF meloxicam 15 mg tablet 15 mg PO QDAY Qty: 14 0RF cyclobenzaprine 10 mg tablet 10 mg PO Q8H PRN (Reason: muscle spasm) Qty: 30 0RF lidocaine [Lidoderm] 5 % adhesive patch,medicated 2 patch topical QDAY PRN (Reason: pain) Qty: 30 0RF Rx Instructions: leave on most painful area for up to 12 hrs hydrocodone-acetaminophen 5-325 mg tablet 1 tab PO BID MDD 10 PRN (Reason: pain) Qty: 6 0RF Referrals: No Primary/Family,Physician [Primary Care Provider] - In 1 week Problem List Clinical Impression: Contusion of hip Patient/Caregiver Discharge Instructions Education Materials: ED Hip Contusion Additional Instructions: Please follow-up with your primary care provider in the next 24 to 48 hours X-rays of your hip were completed and were negative for any acute findings For any evidence of worsening signs or symptoms return to the emergency room immediately Print Language: Tajik Stand Alone Forms: [employer] Award Info., Patient Portal Info Letter PA/CIVIL ENGINEERING DRAFTER Supervising Physician PA/[employer]IV[employer] ENGINEERING DRAFTER Supervising Physician: Dr. Miller
[2025-04-14] MEDS: HYDROcodone/APAP 5/325 TABLET 1 TAB PO (14:49)
[2025-04-14 16:08] VITALS: BP 132/76; PULSE 68; RESP 18; TEMP 36.4; O2SAT 98
== END 2025-04-14 16:09 | disposition home or self-care (01) ==
PROVIDERS: Emergency Provider Emergency Medicine
DX: S70.02XA Contusion of left hip, initial encounter (principal); W18.30XA Fall on same level, unspecified, initial encounter
CPT/HCPCS: 73502; 99283; A9270

== ENCOUNTER 2025-06-20 14:12 | Emergency (ER) | payer MEDICAID, SELFPAY ==
[2025-06-20 14:29] VITALS: BP 126/77; PULSE 104; RESP 18; TEMP 37.2; O2SAT 95
--- NOTE | 2025-06-20 14:41 | XR_ITS ---
Examination: Humerus 2 views right Technique: Humerus, AP lateral 2 views Date and time of exam: June 20, 2025 1500 hours INDICATIONS: Injury to the arm today, arm pain. FINDINGS: No humerus fracture Moderate to advanced ankle humeral joint Mild right shoulder calcific tendinitis IMPRESSION: No fracture Recommend follow-up elbow films as clinically warranted
--- NOTE | 2025-06-20 14:41 | XR_ITS ---
Examination: Shoulder,right, 3 views Technique: Shoulder AP internal rotation, AP external rotation, Y view shoulder, 3 views Exam date and time :June 20, 2025 1500 hours INDICATIONS: Right arm pain today post injury FINDINGS: No fracture or dislocation. Moderate to advanced narrowing glenohumeral joint Mild right shoulder calcific tendinitis IMPRESSION: No shoulder fracture or dislocation
[2025-06-20] MEDS: KETOROLAC INJ 60 MG/2 ML VIAL 30 MG IM (15:24)
--- NOTE | 2025-06-20 17:12 | EDNOTE_ITS ---
<Statement entered by Cherelle Carlisle MD - 07/01/25 11:13> As co-signing physician, I was present and available for consult prn. I concur with the plan and care as documented by the midlevel provider. Upper Extremity Injury RME/HPI General Chief Complaint: Extremity Injury, Upper Stated Complaint: R) SHOULDER POPPED WHEN SHE MOVED STOVE Source: patient Arrival date/time: 06/20/25 14:12 60-year-old female with no known medical history presents to the emergency room with a chief complaint of right shoulder pain as well as right arm pain x 1 day Mode of arrival: ambulatory Limitations: no limitations Related Data Home Medications ?Medication ?Instructions ?Recorded ?Confirmed baclofen 5 mg tablet 5 mg PO BID 01/02/21 1 hydrocodone 10 mg-acetaminophen 1 tab PO Q4H PRN Pain 01/02/21 01/02/21 325 mg tablet pregabalin 75 mg capsule (Lyrica) 75 mg PO BID 1 01/02/21 Previous Rx's ?Medication ?Instructions ?Recorded ibuprofen 600 mg tablet 600 mg PO Q8H PRN pain #20 t abs 06/21/21 hydrocodone 5 mg-acetaminophen 325 1 tab PO BID PRN pa in #10 tabs 06/22/21 mg tablet fluticasone propionate 50 2 spray intranasal QDAY #16 grams 10/19/21 mcg/actuation nasal spray,suspension (Flonase Allergy Relief) albuterol sulfate 90 mcg/actuation 2 puff inhalation Q ID #8.5 grams 05/06/22 aerosol inhaler budesonide-formoterol HFA 80 2 puff inhalation BID #10 .2 grams 05/06/22 mcg-4.5 mcg/actuation aerosol inhaler (Symbicort) cetirizine 10 mg tablet (Zyrtec) 10 mg PO QDAY PRN all ergy symptoms 03/31/24 #20 tabs diphenhydramine HCl 25 mg capsule 25 mg PO TID PRN all ergy symptoms 03/31/24 (Allergy (diphenhydramine)) #20 caps hydrocortisone 2.5 % topical cream 1 applic topical BI D PRN itching 04/02/24 #30 grams hydrocortisone 2.5 % topical cream 1 applic topical BI D PRN itching 09/14/24 #30 grams hydrocodone 5 mg-acetaminophen 325 1 tab PO BID PRN pa in #6 tabs 01/27/25 mg tablet meloxicam 15 mg tablet 15 mg PO QDAY #14 tabs 02/05 cyclobenzaprine 10 mg tablet 10 mg PO Q8H PRN muscle s pasm #30 02/27/25 tabs lidocaine 5 % topical patch 2 patch topical QDAY PRN p ain #30 02/27/25 (Lidoderm) ea ibuprofen 600 mg tablet 600 mg PO Q8H PRN fever or p ain 04/14/25 #20 tabs ibuprofen 600 mg tablet 600 mg PO Q8H PRN fever or p ain 06/20/25 #20 tabs Allergies Allergy/AdvReac Type Severity Reaction Status Date / Time paroxetine Allergy Mild Rash Verified 06/20/25 14:16 sertraline Allergy Mild Rash Verified 06/20/25 14:16 Review of Systems Review of Systems Systems Reviewed: All systems reviewed, normal except as documented Constitutional Constitutional: Reports system reviewed and no additional complaints, except as documented, Denies fatigue, Denies fever(s), Denies headache(s) and Denies weakness Eyes Eyes: Reports system reviewed and no additional complaints, except as documented, Denies blurry vision and Denies change in vision ENT Ears, Nose, Mouth, and Throat: Reports system reviewed and no additional complaints, except as documented, Denies otalgia, Denies headache(s), Denies nasal congestion, Denies throat swelling and Denies vertigo Cardiovascular Cardiovascular: Reports system reviewed and no additional complaints, except as documented, Denies chest pain, Denies dyspnea and Denies dyspnea on exertion Respiratory Respiratory: Reports system reviewed and no additional complaints, except as documented, Denies chest congestion, Denies cough, Denies dyspnea, Denies dyspnea on exertion and Denies wheezing Gastrointestinal Gastrointestinal: Reports system reviewed and no additional complaints, except as documented, Denies abdominal pain, Denies cramping, Denies nausea and Denies vomiting Genitourinary Genitourinary: Reports system reviewed and no additional complaints, except as documented Musculoskeletal Musculoskeletal: Reports system reviewed and no additional complaints, except as documented, Reports arthralgias, Denies back pain, Reports joint swelling and Reports limited range of motion Integumentary/Breasts Skin/Breast: Reports system reviewed and no additional complaints, except as documented and Denies wounds Neurologic Neurologic: Reports system reviewed and no additional complaints, except as documented, Denies confusion, Denies headache(s), Denies lack of coordination, Denies vertigo and Denies weakness Psychiatric Psychiatric: Reports system reviewed and no additional complaints, except as documented, Denies anxiety, Denies confusion, Denies depression, Denies paranoia, Denies suicidal ideation and Denies tactile hallucinations Endocrine Endocrine: Reports system reviewed and no additional complaints, except as documented and Denies fatigue Hematologic/Lymphatic Hematologic/Lymphatic: Reports system reviewed and no additional complaints, except as documented and Denies lymphadenopathy Allergic/Immunologic Allergic/Immunologic: Reports system reviewed and no additional complaints, except as documented, Denies throat swelling, Denies urticaria and Denies wheezing Past Medical History Past Medical History NEUROLOGIC: Negative Neurological Disorders CARDIAC: Negative Cardiac Disorders or Congestive Heart Failure RESPIRATORY: Positive Chronic Obstructive Pulmonary Disease (COPD); Negative Asthma GENITOURINARY: Negative Renal Disease ENDOCRINE: Negative Diabetes Mellitus Type 1 or Diabetes Mellitus Type 2 HEMATOLOGIC: Negative Sickle Cell Disease PSYCHO/SOCIAL: Positive Bipolar Disorder Social History SMOKING STATUS: Current every day smoker ED Exam General Limitations: Present no limitations General appearance: Present alert and in no apparent distress Head Head exam: Present atraumatic Eye Eye exam: Present normal appearance, PERRL and EOMI ENT ENT exam: Present normal exam, normal oropharynx and mucous membranes moist Neck Neck exam: Present normal inspection, full ROM and trachea midline Chest Chest inspection: Present normal inspection and symmetric chest wall rise Respiratory Respiratory exam: Present normal lung sounds bilaterally Cardiovascular Cardiovascular exam: Present regular rate, normal rhythm and normal heart sounds Abdominal Exam Abdominal exam: Present soft and normal bowel sounds Extremities Exam Extremities exam: Present normal inspection and full ROM Expanded Upper Extremity Exam Shoulder exam: Present tenderness and tenderness over AC joint; Absent full ROM Arm exam: Present tenderness Back Exam Back exam: Present normal inspection and full ROM Neurological Exam Neurological exam: Present alert, oriented X3 and CN II-XII intact Psychiatric Psychiatric exam: Present normal affect and normal mood Skin Skin exam: Present warm, dry, intact and normal color Course Quality Measures none Orders Category Date Time Status XR humerus RT min 2V Stat Exams 06/20/25 14:41 Completed XR shoulder RT min 2V Stat Exams 06/20/25 14:41 Completed Ketorolac Inj [Toradol Inj] Med 06/20/25 14:41 Discontinued 30 mg IM X1 ONE Vital Signs Vital signs: Vital Signs Temperature 99 F 06/20/25 14:29 Pulse Rate 104 H 06/20/25 14:29 Respiratory Rate 18 06/20/25 14:29 Blood Pressure 126/77 06/20/25 14:29 Pulse Oximetry (%) 95 06/20/25 14:29 Oxygen Delivery Method Room Air 06/20/25 14:29 Extremity Injury MDM Narrative MDM Narrative:: 60-year-old female with no known medical history presents to the emergency room with a chief complaint of right shoulder pain as well as right arm pain x 1 day Patient is hemodynamically stable and in no apparent distress Physical examination shows tenderness and pain to the patient's right shoulder with palpation. The patient also has tenderness and pain to the patient's right humerus. Patient states she was moving a stove today and heard a pop X-rays of the arm and shoulder were completed and were negative for any acute fracture or dislocation Patient was discharged and educated to follow-up with primary care provider in the next 24 to 48 hours and return to the emergency room for any evidence of worsening signs or symptoms Patient data External records reviewed:: [facility] previous records Clinical information provided by:: patient Social determinants that could affect healthcare access:: none Patient has the following chronic illnesses:: No chronic illness How is presenting disease/condition affected by chronic disease/condition?: no chronic disease Evaluation data The following diagnostics were reviewed and interpreted by me:: lab results and radiology exam(s) Lab and/or radiology exams considered but not ordered:: Labs and radiology exams considered in order Interpretation Summary: X-ray of the right shoulder-FINDINGS: No fracture or dislocation. Moderate to advanced narrowing glenohumeral joint Mild right shoulder calcific tendinitis IMPRESSION: No shoulder fracture or dislocation Medications / Prescriptions Medications or Prescriptions considered but not ordered:: Medication given Medication administrations:: Medication Administration History Discontinued Medications Ketorolac Tromethamine (Ketorolac Inj 60 Mg/2 Ml Vial) 30 mg IM X1 ONE Stop: 06/20/25 14:42 Last Admin: 06/20/25 15:24 Dose: 30 mg Documented By: OA Medication given Consultations Consultation(s) initiated? (list below): No Diagnosis Upper Extremity Injury Differential Diagnosis: dislocation of shoulder, fracture of clavicle and other (Right shoulder sprain) Most likely diagnosis given after review of the tests above:: Right shoulder sprain Admission Indicated Admission indicated?: not indicated Admission Request Was there a request for admission?: No Disposition Plan Disposition Plan: Discharge Discharge Attestation Discharge Attestation: The patient and all family members were given an opportunity to ask questions and understood the discharge instructions. Discharge instructions specifically effects, indications for sooner follow up or return to the emergency department, and the expected course of current diagnosis. Patient condition: Stable Discharge Plan Plan Patient Disposition: HOME (Self Care) Discharge Disposition comment: Stable Prescriptions/Referrals Prescriptions/Med Rec: New ibuprofen 600 mg tablet 600 mg PO Q8H PRN (Reason: fever or pain) Qty: 20 0RF No Action ibuprofen 600 mg tablet 600 mg PO Q8H PRN (Reason: pain) Qty: 20 0RF hydrocodone-acetaminophen 5-325 mg tablet 1 tab PO BID MDD 10 PRN (Reason: pain) Qty: 10 0RF hydrocodone-acetaminophen [[place]] 10-325 mg Tablet 1 tab PO Q4H PRN (Reason: Pain) pregabalin [Lyrica] 75 mg Capsule 75 mg PO BID baclofen 5 mg Tablet 5 mg PO BID fluticasone propionate [Flonase Allergy Relief] 50 mcg/actuation spray,suspension 2 spray intranasal QDAY Qty: 16 0RF Rx Instructions: administer into each nostril albuterol sulfate 90 mcg/actuation HFA aerosol inhaler 2 puff inhalation QID Qty: 8.5 0RF budesonide-formoterol [Symbicort] 80-4.5 mcg/actuation HFA aerosol inhaler 2 puff inhalation BID Qty: 10.2 0RF diphenhydramine HCl [Allergy (diphenhydramine)] 25 mg capsule 25 mg PO TID PRN (Reason: allergy symptoms) Qty: 20 0RF cetirizine [Zyrtec] 10 mg tablet 10 mg PO QDAY PRN (Reason: allergy symptoms) Qty: 20 0RF hydrocortisone 2.5 % cream 1 applic topical BID PRN (Reason: itching) Qty: 30 0RF hydrocortisone 2.5 % cream 1 applic topical BID PRN (Reason: itching) Qty: 30 0RF meloxicam 15 mg tablet 15 mg PO QDAY Qty: 14 0RF cyclobenzaprine 10 mg tablet 10 mg PO Q8H PRN (Reason: muscle spasm) Qty: 30 0RF lidocaine [Lidoderm] 5 % adhesive patch,medicated 2 patch topical QDAY PRN (Reason: pain) Qty: 30 0RF Rx Instructions: leave on most painful area for up to 12 hrs hydrocodone-acetaminophen 5-325 mg tablet 1 tab PO BID MDD 10 PRN (Reason: pain) Qty: 6 0RF ibuprofen 600 mg tablet 600 mg PO Q8H PRN (Reason: fever or pain) Qty: 20 0RF Referrals: No Primary/Family,Physician [Primary Care Provider] - In 1 week Problem List Clinical Impression: Right shoulder tendonitis Patient/Caregiver Discharge Instructions Additional Instructions: Please follow-up with your primary care provider in the next 24 to 48 hours Your x-ray of your right shoulder and arm were negative for any acute fracture or dislocations. If your signs and symptoms continue please follow-up with your primary care provider as a referral for an MRI of your right shoulder may be indicated to assess for any ligament damage or tears. For any evidence of worsening signs or symptoms return to the emergency room immediately Print Language: Uzbek Stand Alone Forms: [facility] Award Info., Patient Portal Info Letter PA/[employer] Supervising Physician PA/[employer] Supervising Physician: Dr. CARLISLE
== END 2025-06-20 17:26 | disposition home or self-care (01) ==
PROVIDERS: Emergency Provider Emergency Medicine
DX: M75.31 Calcific tendinitis of right shoulder (principal); M79.601 Pain in right arm
CPT/HCPCS: 73030; 73060; 96372; 99283; J1885